=== PATIENT | male | born 1985 | race Asian ===

== ENCOUNTER 2024-02-17 16:03 | Emergency (ER) | payer OTHER ==
[2024-02-17 17:19] LABS: Specific Gravity 1.019 (1.005-1.030); Sqamous Epithelial None Seen /HPF (None Seen); Urine Bacteria <20 /HPF (<20); Urine Bilirubin NEGATIVE (Negative); Urine Blood Negative (Negative); Urine Clarity Clear (Clear); Urine Color Light-Yellow (Yellow); Urine Culture Reflex Order REFLEXED; Urine Glucose NEGATIVE (Negative); Urine Ketones NEGATIVE (Negative); Urine Microscopic Reflex YN ORDER UMIC; Urine Mucus Slight /HPF (None Seen); Urine Nitrite NEGATIVE (Negative); Urine Protein NEGATIVE (Negative); Urine Urobilinogen Normal (Normal); Urine pH 5.5 (5.0-7.0)
--- NOTE | 2024-02-17 17:24 | EDPHYS ---
Physician Documentation [facility] Name: Luis Leija Age: 38 yrs Sex: Male : 1985 Arrival Date: 02/17/2024 Time: 16:03 Bed 26 Private MD: ED Physician Gregg Pineda HPI: 02/16 18:26 This 38 yrs old Male presents to ER via Ambulatory with complaints of Urinary Problem, kb Pain With Urination. 18:26 Pt is a 38 year old male who presents for dysuria for one month. Denies fever, flank kb pain, abd pain, hematuria, testicular/penile pain or discharge. . Historical: - Allergies: 16:49 No Known Allergies; ld1 - PMHx: 16:49 None; ld1 - PSHx: 16:49 None; ld1 - Immunization history:: Adult Immunizations up to date. - Infectious Disease History:: Denies. - Social history:: Smoking status: Patient denies any tobacco usage or history of. ROS: 18:25 Constitutional: As per HPI kb Exam: 18:25 Constitutional: This is a well developed, well nourished patient who is awake, alert, kb and in no acute distress. Head/Face: Normocephalic, atraumatic. ENT: Moist Mucous membranes Cardiovascular: Regular rate Respiratory: Respirations even and unlabored. No increased work of breathing. Talking in full sentences Abdomen/GI: Soft, non-tender. No distention Back: No spinal tenderness. No costovertebral tenderness. Full range of motion. Skin: Warm, dry with normal turgor. Normal color. MS/ Extremity: Pulses equal, no cyanosis. Neurovascular intact. Full, normal range of motion. Neuro: Awake and alert, GCS 15, oriented to person, place, time, and situation. Moves all extremities. Normal gait. Vital Signs: 16:49 Pulse 64; Resp 18; Pulse Ox 99% on R/A; ld1 16:49 Temp 98.1(TE); Weight 83.46 kg; Height 5 ft. 8 in. ; Pain 0/10; ld1 16:49 BP 130 / 96; ld1 17:42 BP 124 / 82; Pulse 69; Resp 18; Pulse Ox 100% on R/A; ld1 16:49 Body Mass Index 27.98 (83.46 kg, 172.72 cm) ld1 16:49 Pain Scale: Adult ld1 MDM: 16:06 Patient medically screened. kb 18:25 Differential diagnosis: uti, kidney stone, std. Data reviewed: vital signs, nurses kb notes. Test considered but Not performed: CT: ct considered but pt has no CVA or abd tenderness. Counseling: I had a detailed discussion with the patient and/or guardian regarding the historical points, exam findings, and any diagnostic results supporting the discharge/admit diagnosis, lab results, the need for outpatient follow up, a urologist, to return to the emergency department if symptoms worsen or persist or if there are any questions or concerns that arise at home. 02/16 16:06 Order name: Urinalysis w/ reflexes; Complete Time: 17:22 kb 02/16 17:25 Order name: Urine Culture EDMS Administered Medications: No medications were administered Disposition Summary: 02/17/24 17:23 Discharge Ordered Notes: Location: Home kb Condition: Stable kb Diagnosis - UTI/ Urinary tract infection, site not specified kb Followup: kb - With: Emergency Department - When: As needed - Reason: Worsening of condition Followup: kb - With: Private Physician - When: 2 - 3 days - Reason: Recheck today's complaints, Continuance of care, Re-evaluation by your physician Discharge Instructions: - Discharge Summary Sheet kb - Urinary Tract Infection, Adult, [id number] kb Forms: - Medication Reconciliation Form kb - Antibiotic Education kb - Prescription Opioid Use kb - Patient Portal Instructions kb - Leadership Thank You Letter kb Prescriptions: - Augmentin 875-125 mg Oral Tablet - take 1 tablet ORAL route every 12 hours for 10 days; 20 tablet; Refills: 0, kb Product Selection Permitted Signatures: Dispatcher [employer] EDMS Flori Mcgowan, TARYN ESPARZA-Cassia Kennedy, RN RN ld1
--- NOTE | 2024-02-17 17:24 | ER ---
Nurse's Notes [facility] Name: Luis Leija Age: 38 yrs Sex: Male : 1985 Arrival Date: 02/17/2024 Time: 16:03 Bed 26 Private MD: Diagnosis: UTI/ Urinary tract infection, site not specified Presentation: 02/16 16:44 Chief complaint: Patient states: burning with urination for almost a month. iw 16:47 Coronavirus screen: At this time, the client does not indicate any symptoms associated iw with coronavirus-19. Ebola Screen: Patient negative for fever greater than or equal to 101.5 degrees Fahrenheit, and additional compatible Ebola Virus Disease symptoms Patient denies exposure to infectious person. Patient denies travel to an Ebola-affected area in the 21 days before illness onset. No symptoms or risks identified at this time. Initial Sepsis Screen: Does the patient meet any 2 criteria? No. Patient's initial sepsis screen is negative. Does the patient have a suspected source of infection? No. Patient's initial sepsis screen is negative. Risk Assessment: Do you want to hurt yourself or someone else? Patient reports no desire to harm self or others. Onset of symptoms was December 2023. 16:47 Method Of Arrival: Ambulatory iw 16:47 Acuity: ALENA 4 iw Triage Assessment: 16:49 General: Appears in no apparent distress. comfortable, Behavior is calm, cooperative, ld1 appropriate for age. Pain: Denies pain. EENT: No signs and/or symptoms were reported regarding the EENT system. Neuro: Level of Consciousness is awake, alert, obeys commands, Oriented to person, place, time, Appropriate for age. Cardiovascular: Capillary refill < 3 seconds Patient's skin is warm and dry. Respiratory: Airway is patent Respiratory effort is even, unlabored. GI: Abdomen is flat, non-distended. : Reports burning with urination. Derm: No signs and/or symptoms reported regarding the dermatologic system. Musculoskeletal: No signs and/or symptoms reported regarding the musculoskeletal system. Historical: - Allergies: 16:49 No Known Allergies; ld1 - PMHx: 16:49 None; ld1 - PSHx: 16:49 None; ld1 - Immunization history:: Adult Immunizations up to date. - Infectious Disease History:: Denies. - Social history:: Smoking status: Patient denies any tobacco usage or history of. Screenin:51 [facility] ED Fall Risk Assessment (Adult) History of falling in the last 3 months, ld1 including since admission No falls in past 3 months (0 pts) Confusion or Disorientation No (0 pts) Intoxicated or Sedated No (0 pts) Impaired Gait No (0 pts) Mobility Assist Device Used No (0 pt) Altered Elimination No (0 pt) Score/Fall Risk Level 0 - 2 = Low Risk Oriented to surroundings, Maintained a safe environment, Educated pt \T\ family on fall prevention, incl call for assistance when getting out of bed, Assessed \T\ reinforced patient's understanding of fall precautions, Provided non-skid footwear, Hourly rounding (assess needs \T\ fall precautionary measures) done, Used ambulatory aids as needed (educated on \T\ assisted with), Used gait belt as appropriate. Abuse screen: Denies threats or abuse. Denies injuries from another. Nutritional screening: No deficits noted. Tuberculosis screening: No symptoms or risk factors identified. Assessment: 16:51 Reassessment: See triage assessment. ld1 17:42 Reassessment: Patient appears in no apparent distress at this time. No changes from ld1 previously documented assessment. Patient and/or family updated on plan of care and expected duration. Pain level reassessed. Patient is alert, oriented x 3, equal unlabored respirations, skin warm/dry/pink. Vital Signs: 16:49 Pulse 64; Resp 18; Pulse Ox 99% on R/A; ld1 16:49 Temp 98.1(TE); Weight 83.46 kg; Height 5 ft. 8 in. ; Pain 0/10; ld1 16:49 BP 130 / 96; ld1 17:42 BP 124 / 82; Pulse 69; Resp 18; Pulse Ox 100% on R/A; ld1 16:49 Body Mass Index 27.98 (83.46 kg, 172.72 cm) ld1 16:49 Pain Scale: Adult ld1 ED Course: 16:05 Patient arrived in ED. ra3 16:05 Flor[facility] Mcgow[facility]C [facility] kb 16:05 Gregg Pineda MD is Attending Physician. kb 16:37 Palmira Anglin, MATTHEW is Primary Nurse. iw 16:47 Triage completed. iw 16:49 Arm band placed on right wrist. ld1 16:51 Patient has correct armband on for positive identification. Placed in gown. Bed in low ld1 position. Call light in reach. Side rails up X2. rehab specialist on. Pulse ox on. NIBP on. Door closed. Noise minimized. Warm blanket given. 16:51 No provider procedures requiring assistance completed. Patient did not have IV access ld1 during this emergency room visit. 16:59 Urinalysis w/ reflexes Sent. iw Administered Medications: No medications were administered Medication: 16:51 VIS not applicable for this client. ld1 Outcome: 17:23 Discharge ordered by . kb 17:43 Discharged to home ambulatory, ld1 17:43 Condition: stable 17:43 Discharge instructions given to patient, Instructed on discharge instructions, follow up and referral plans. medication usage, Demonstrated understanding of instructions, follow-up care, medications, Prescriptions given X 1, 17:43 Patient left the ED. ld1 Signatures: Flori Mcgowan, VOCATIONAL PSYCHOLOGIST-C VOCATIONAL PSYCHOLOGIST-Palmira Becker, RN RN Cassia Bull RN RN ld1 Bhumika Parsons ra3
[2024-02-17 18:22] VITALS: BP 124/82; TEMP 98.1; O2SAT 100
== END 2024-02-17 17:43 | disposition home or self-care (01) ==
LOC: ER 16:03
DX: N39.0 Urinary tract infection, site not specified (principal)
CPT/HCPCS: 81001; 87086; 87088; 99284

== ENCOUNTER 2024-08-03 07:08 | Observation (INO) | payer OTHER ==
--- OUTSIDE RECORDS SUMMARY | 2024-08-03 07:12 | XMS REPORT | Continuity of Care Document ---
Author Name Unknown Address [address] [facility] [address] [place] [address] [facility] Address [address] [facility] [address] [place] [address] Care Team Providers Care Edge Finisher Name Role Phone PCP, PATIENT DOES NOT HAVE A Primary Care Physic fritz Unavailable GINGER TO Attending Clinician Unavailable GINGER TO Attending Clinician Unavailable Darlene De Luna RN Attending Clinician [phone] Ling Farmer Attending Clinician [phone] ANDREA EDGAR Attending Clinician UnaDino Astorga MD Attending Clinician [phone] Dorita Jarvis MD Attending Clinician [phone] Andrea Edgar DO Attending Clinician [phone] DINO DAVIS Admitting Clinician Unavailable Dino Davis MD Admitting Clinician [phone] Payers Payer Name Policy Type Policy Number Effective Date Expirati on Date Source [facility] RBG COMM [id number] 2024 00:00:00 COVID19 HRSA UNINSURED [id number] 2020 00:00:00 2020 00:00:00 Problems Condition Name Condition Details Condition Category Status Onset Date Resolution Date Last Treatment Date Treating Clinician Comments Source COVID-19 COVID-19 Disease Active 10-24 00:00: 00 [facility] Allergies, Adverse Reactions, Alerts Allergy Name Allergy Type Status Severity Reaction(s) Onset Date Inactive Date Treating Clinician Comments Source NO KNOWN ALLERGIE S Drug Class Active [facility] Social History Social Habit Start Date Stop Date Quantity Comments Source Exposure to SARS-CoV-2 (event) Yes [facility] Tobacco use and exposure 2020-10-25 00:00:00 2020-10-25 00:00:00 Never used [facility] History SDOH Financial 2020-10-25 00:00:00 2020-10-25 00:00:00 5 [facility] Sex Assigned At 1985 00:00:00 1985 00:00:00 [facility] Smoking Status Start Date Stop Date Source Never smoker [facility] Medications Ordered Medication Name Filled Medication Name Start Date Stop Date Current Medication? Ordering Clinician Indication Dosage Frequency Signature (SIG) Comments Components Source codeine-gua ifenesin 10-100 mg/5 mL solution 11-01 00:00: 00 Yes [id number] 5mL Take 5 mL by mouth every 6 (six) hours. Indication s: acute pain [facility] enoxaparin 80 mg/0.8 mL injection 11-01 00:00: 00 11-30 04:59 :00 No [id number] 80mg inject 0.8 mL under the skin every 24 (twenty-fo ur) hours for 28 days. [facility] albuterol 90 mcg/actuati on inhaler - 00:00: 00 Yes [id number] 2{puff} Inhale 2 Puffs every 6 (six) hours as needed for Wheezing or Shortness of Breath. [facility] codeine-gua ifenesin 10-100 mg/5 mL solution 3- 00:00: 00 11-08 04:59 :00 No [id number] 5mL Take 5 mL by mouth every 6 (six) hours for 7 days. Indication s: acute pain [facility] codeine-gua ifenesin (ROBITUSSIN AC) 10-100 mg/5 mL solution 5 mL - 22:00: 00 Yes 5mL 5 mL, Oral, Q6H ABX, First dose (after last modificati on) on Thu10/30/20 at 1600, Until Discontinu ed, Routine [facility] Investigati onal drug - baricitinib 2 mg or placebo tablet 10-27 18:30: 00 11-09 17:29 :00 No 4mg 4 mg, Oral, Q24H, 13 doses, First dose (after last modificati on) on 10/27/20 at 1230, Last dose on [place]ak 11/08/20 at 1230, ALAN
Pr incipal investigat or: ANKIT TEAGUE [facility] Investigati onal drug - dexamethaso ne IV or placebo 10-27 18:30: 00 11-05 17:29 :00 No 6mg 6 mg, IV Push, Q24H, 9 doses, First dose (after last modificati on) on 10/27/20 at 1230, Last dose on Thu11/04/20 at 1230, ALAN
Pr incipal investigat or: ANKIT TEAGUE [facility] Investigati onal drug - remdesivir 100 mg in NaCl 0.9% (NS) 250 mL infusion 10-27 17:00: 00 11-04 15:59 :00 No 100mg 100 mg, IV Infusion, Q24H, 8 doses, First dose (after last modificati on) on 10/27/20 at 1100, Last dose on 11/03/20 at 1100, 250 mL
Prin cipal investigat or: ANKIT TEAGUE [facility] pantoprazol e (PROTONIX) EC tablet 40 mg 10-27 15:00: 00 Yes 40mg 40 mg, Oral, DAILY, First dose on 10/27/20 at 0900, Until Discontinu ed, Routine [facility] codeine-gua ifenesin (ROBITUSSIN AC) 10-100 mg/5 mL solution 5 mL 10-27 04:00: 00 10-30 21:45 :10 No 5mL 5 mL, Oral, Q6H ABX, First dose on Thu10/26/20 at 2200, Until Discontinu ed, Routine [facility] benzonatate (TESSALON PERLES) capsule 200 mg 10-27 02:00: 00 Yes 200mg 200 mg, Oral, TID, First dose on Thu10/26/20 at 2000, Until Discontinu ed, Routine [facility] NaCl 0.9% (NS) injection 10 mL 10-26 21:42: 51 Yes 10mL 10 mL, Slow IV Push, PRN, Starting Thu10/26/20 at 1542, Until Discontinu ed, Routine, line maintenanc e [facility] lidocaine 1% (PF) (XYLOCAINE) injection 5 mL 10-26 21:42: 51 Yes 5mL 5 mL, Subcutaneo us, PRN, Starting Thu10/26/20 at 1542, Until Discontinu ed, Routine, Local anesthesia [facility] Investigati onal drug - dexamethaso ne IV or placebo 10-26 21:00: 00 10-26 22:29 :09 No 6mg 6 mg, IV Push, Q24H, 10 doses, First dose on Thu10/26/20 at 1500, Last dose on Thu11/04/20 at 1500, ALAN
Pr incipal investigat or: ANKIT TEAGUE [facility] Investigati onal drug - baricitinib 2 mg or placebo tablet 10-26 21:00: 00 10-26 22:29 :09 No 4mg 4 mg, Oral, Q24H, 14 doses, First dose on Thu10/26/20 at 1500, Last dose on Thu11/08/20 at 1500, ALAN
Pr incipal investigat or: ANKIT TEAGUE [facility] enoxaparin (LOVENOX) injection 80 mg 10-26 09:30: 00 Yes 1mg/kg 80 mg (rounded from 76 mg = 1 mg/kg ?76 kg), Subcutaneo us, Q24H, First dose (after last modificati on) on Thu10/26/20 at 0330, Until Discontinu ed, Routine [facility] acetaminoph en (TYLENOL) tablet 650 mg 10-25 10:11: 55 Yes 650mg 650 mg, Oral, Q8HPRN, Starting Thu10/25/20 at 0411, Until Discontinu ed, Routine, Pain (scale 1-3), Temp > 38.5 C [facility] enoxaparin (LOVENOX) injection 40 mg 10-25 09:30: 00 10-25 16:10 :48 No 40mg 40 mg, Subcutaneo us, Q24H, First dose on Thu10/25/20 at 0330, Until Discontinu ed, Routine [facility] ipratropium (ATROVENT HFA) inhaler 1 Puff 10-25 06:45: 00 10-25 13:31 :27 No 1{puff} 1 Puff, Inhalation , Q6H, First dose on Thu10/25/20 at 0045, Until Discontinu ed, Routine
Is this order for a patient with suspected or confirmed COVID-19 infection? Yes [facility] albuterol (VENTOLIN) inhaler 1 Puff 10-25 06:45: 00 10-25 13:40 :05 No 1{puff} 1 Puff, Inhalation , Q6H, First dose on Thu10/25/20 at 0045, Until Discontinu ed, Routine
Is this order for a patient with suspected or confirmed COVID-19 infection? Yes [facility] glucagon (GLUCAGEN DIAGNOSTIC KIT) injection 1 mg 10-25 05:20: 55 Yes 1mg 1 mg, Intramuscu lar, PRN, Starting Thu10/24/20 at 2320, Until Discontinu ed, ALAN, Blood Glucose < or = 70 mg/dL and patient is unable to swallow or has mental changes. [facility] dextrose 50 % in water (D50W) injection 25 mL 10-25 05:20: 55 Yes 25mL 25 mL, Slow IV Push, PRN, Starting Thu10/24/20 at 2320, Until Discontinu ed, ALAN, Blood Glucose < or = 70 mg/dL and patient is unable to swallow or has mental status changes. [facility] Vital Signs Vital Name Observation Time Observation Value Comments S ource Respiratory rate 2020-10-31 21:47:00 18 /min [facility] Oxygen saturation in Arterial blood by Pulse oximetry 2020-10-31 21:47:00 95 /min [facility] Systolic blood pressure 2020-10-31 21:47:00 112 mm[Hg] [facility] Diastolic blood pressure 2020-10-31 21:47:00 75 mm[Hg] [facility] Heart rate 2020-10-31 21:47:00 111 /min [facility] Body temperature 2020-10-31 21:46:00 36.78 Sandra [facility] Body weight 2020-10-30 02:00:00 78.472 kg [facility] BMI 2020-10-30 02:00:00 27.92 kg/m2 [facility] Body height 2020-10-25 05:06:00 167.6 cm [facility] Procedures Procedure Date / Time Performed Performing Clinician Source HEPATIC FUNCTION PANEL ([id number]) (ALB,T.PRO,BILI T,BU/BC,ALT,AST,ALK PHOS) 2020-10-31 09:35:00 Wally [facility] BASIC METABOLIC PANEL (NA, K, CL, CO2, GLUCOSE, BUN, CREATININE, CA) 2020-10-31 09:35:00 Wally [facility] C-REACTIVE PROTEIN 2020-10-30 09:32:00 [facility] ([id number][facility] (ALB,T.PRO,BILI T,BU/BC,ALT,AST,ALK PHOS) 2020-10-30 09:32:00 Wally [facility] BASIC METABOLIC PANEL (NA, K, CL, CO2, GLUCOSE, BUN, CREATININE, CA) 2020-10-30 09:32:00 Wally [facility] CBC WITH DIFF 2020-10-30 09:32:00 Lo, Matt [facility] PROTHROMBIN TIME / INR 2020-10-30 09:32:00 Wally [facility] D-DIMER 2020-10-30 09:32:00 Wally [facility] HEPATIC FUNCTION PANEL ([id number]) (ALB,T.PRO,BILI T,BU/BC,ALT,AST,ALK PHOS) 2020-10-29 09:43:00 Wally [facility] BASIC METABOLIC PANEL (NA, K, CL, CO2, GLUCOSE, BUN, CREATININE, CA) 2020-10-29 09:43:00 [facility] C-REACTIVE PROTEIN 2020-10-28 10:25:00 Matt Lo [facility] HEPATIC FUNCTION PANEL ([id number]) (ALB,T.PRO,BILI T,BU/BC,ALT,AST,ALK PHOS) 2020-10-28 10:25:00 Lo [facility] BASIC METABOLIC PANEL (NA, K, CL, CO2, GLUCOSE, BUN, CREATININE, CA) 2020-10-28 10:25:00 Lo [facility] CBC WITH DIFF 2020-10-28 10:25:00 Wally [facility] PROTHROMBIN TIME / INR 2020-10-28 10:25:00 Wally [facility] D-DIMER 2020-10-28 10:25:00 Lo [facility] C-REACTIVE PROTEIN 2020-10-26 22:19:00 Desean Tinoco [facility] HEPATIC FUNCTION PANEL ([id number]) (ALB,T.PRO,BILI T,BU/BC,ALT,AST,ALK PHOS) 2020-10-26 22:19:00 Desean Tinoco [facility] CBC WITH DIFF 2020-10-26 22:19:00 Desean Tinoco [facility] PROTHROMBIN TIME / INR 2020-10-26 22:19:00 Mildred Tinoco cas [facility] D-DIMER 2020-10-26 22:19:00 Desean Tinoco [facility] VITAMIN D, 25-OH 2020-10-26 22:19:00 Desean Tinoco [facility] BASIC METABOLIC PANEL (NA, K, CL, CO2, GLUCOSE, BUN, CREATININE, CA) 2020-10-26 10:39:00 Sisi Velasquez [facility] SPUTUM CULTURE 2020-10-25 21:25:00 Margaret Walsh [facility] CT CHEST PULMONARY ANGIOGRAM 2020-10-25 14:37:44 Audie Corey [facility] URINALYSIS 2020-10-25 14:21:00 Audie Corey [facility] PNEUMOCOCCAL ANTIGEN 2020-10-25 14:21:[facility] 2020-10-25 14:21:00 Audie Corey [facility] AC PANEL 20 + LACTIC ACID 2020-10-25 07:53:00 [facility] HB ECG ROUTINE & RHYTHM STRIP 2020-10-25 07:41:11 [facility] SPUTUM CULTURE 2020-10-25 06:55:00 Audie Corey [facility] MRSA / MSSA SCREEN BY PCREDDA 2020-10-25 06:54:00 Audie Corey [facility] COVID-19 (ID NOW RAPID TESTING) 2020-10-25 06:54:00 [facility] LAB ONLY COVID INTERPRETATION 2020-10-25 06:54:00 [facility] LACTATE DEHYDROGENASE 2020-10-25 06:52:00 Clarence Corey i [facility] MAGNESIUM 2020-10-25 06:52:00 Audie Corey [facility] CERULOPLASMIN 2020-10-25 06:52:00 Audie Corey [facility] TROPONIN I 2020-10-25 06:52:00 Kristin Tamayo [facility] HEPATIC FUNCTION PANEL (29887) (ALB,T.PRO,BILI T,BU/BC,ALT,AST,ALK PHOS) 2020-10-25 06:52:00 Audie Corey [facility] BASIC METABOLIC PANEL (NA, K, CL, CO2, GLUCOSE, BUN, CREATININE, CA) 2020-10-25 06:52:00 Audie Corey [facility] CBC WITH DIFF 2020-10-25 06:52:00 Audie Corey [facility] D-DIMER 2020-10-25 06:52:00 Audie Corey [facility] PROCALCITONIN 2020-10-25 06:52:[facility] 2020-10-25 06:46:00 Audie Corey [facility] BLOOD CULTURE SCREEN 2020-10-25 06:44:00 [facility] 2020-10-25 05:52:45 Audie Corey [facility] HOSPITAL ADMISSION 2020-10-24 06:01:00 Doctor Un assigned, [place] [facility] Encounters Start Date/Time End Date/Time Encounter Type Admission Type Attending Clinicians Care Facility Care Department Encounter ID Source 2024-06-13 14:37:00 2024-06-13 15:45:00 Emergency Elective GINGER TO [facility] General Medicine [id number] [facility] 2020-11-13 00:00:00 2020-11-13 00:00:00 Patient Outreach Darlene De Luna Miguel Cade 1..840.114 [id number] [facility] 2020-11-01 00:00:00 2020-11-01 00:00:00 Transition of Care Ling Farmer 1..840.114 [id number] [facility] 2020-11-01 00:00:00 2020-11-01 00:00:00 Transition of Care Ling Farmer [id number] [facility] 2020-10-24 23:16:00 2020-10-31 18:13:00 Inpatient U YARON MOROCHO, [facility]REA [facility] [id number] [facility] 2020-10-24 23:16:00 2020-10-31 18:13:00 Hospital Encounter Dino Davis, Dorita Morocho, Andrea [facility] 1..840.114 [id number] [facility] Results Test Description Test Time Test Comments Results Result Co mments Source [facility] (NA, K, CL, CO2, GLUCOSE, BUN, CREATININE, CA)2020-10-31 10:20:35* Test Item Value Reference Range Interpretation Comme nts NA (test code = 5773590715) 134 mmol/L 135-145 L K (test code = 3236361751) 4.5 mmol/L 3.5-5.0 Slight hemolysis CL (test code = 9543702168) 100 mmol/L 98-108 CO2 TOTAL (test code = 5648939705) 29 mmol/L 23-31 AGAP (test code = 7133571444) 2-16 BUN (test code = 3105916491) 24 mg/dL 7-23 H Slight hemolysis GLUCOSE (test code = 4725042924) 133 mg/dL 70-110 H CREATININE (test code = 9578777396) 0.81 mg/dL 0.60-1.25 CALCIUM (test code = 4318025861) 8.4 mg/dL 8.6-10.6 L eGFR Calculation (Non-) (test code = 7595561246) mL/min/1.73m2 eGFR Calculation () (test code = 6646681196) mL/min/1.73m2 MARGARITA (test code = MARGARITA) Association of Glomerular Filtration Rate (GFR) and Staging of Kidney Disease* + -----+ --------+ +| GFR (mL/min/1.73 m2) ?| With Kidney Damage ?| ?Without Kidney Damage+ +------- +---- --+| ?>90 ?| ?Stage one ?| ? Normal ?+ ------+ ---------+--------- +| ?60-89 ?| ?Stage two ?| ? Decreased GFR ? + -----+ --------+ +| ?30-59 ?| ?Stage three ?| ? Stage three ? + -----+ --------+ +| ?15-29 ?| ?Stage four ? | ? Stage four ?+ ------+ ---------+--------- +| ?<15 (or dialysis) ? ?| ?Stage five ? | ? Stage five ?+ ------+ ---------+--------- + *Each stage assumes the associated GFR level has been in effect for at least three months. ?Stages 1 to 5, with or without kidney disease, indicate chronic kidney disease. Notes: Determination of stages one and two (with eGFR >59mL/min/1.73 m2) requires estimation of kidney damage for at least three months as defined by structural or functional abnormalities of the kidney, manifested by either:Pathological abnormalities or Markers of kidney damage (including abnormalities in the composition of the blood or urine or abnormalities in imaging tests). Lab Interpretation (test code = 70004-8) Abnormal [facility] [id number] 15:47:08* Test Item Value Reference Range Interpretation Comme nts CRP (test code = 4689422068) 0.7 mg/dL <0.8 Lab Interpretation (test cod e = 89533-9) Normal [facility] [id number] 14:01:19* Test Item Value Reference Range Interpretation Comme nts Blood Culture-Aerobic (test code = 40767-3) No organisms isolated No growth Previous preliminary verified result was Culture In Progress on 10/25/2020 at 1101 CSTPrevious preliminary verified result was No growth at 24 hours on 10/26/2020 at 0801 CSTPrevious preliminary verified result was No growth at 48 hours on 10/27/2020 at 0801 CSTPrevious preliminary verified result was No growth at 72 hours on 10/28/2020 at 0802 BIOMEDICAL INSTRUMENT TECHNICIAN Blood Culture-Anaerobic (test code = 99777-9) No organisms isolated No growth Previous preliminary verified result was Culture In Progress on 10/25/2020 at 1101 CSTPrevious preliminary verified result was No growth at 24 hours on 10/26/2020 at 0801 CSTPrevious preliminary verified result was No growth at 48 hours on 10/27/2020 at 0801 CSTPrevious preliminary verified result was No growth at 72 hours on 10/28/2020 at 0802 BIOMEDICAL INSTRUMENT TECHNICIAN Lab Interpretation (test code = 80298-1) Normal [facility] [id number] 14:01:19* Test Item Value Reference Range Interpretation Comme nts Blood Culture-Aerobic (test code = 63786-4) No organisms isolated No growth Previous preliminary verified result was Culture In Progress on 10/25/2020 at 1101 CSTPrevious preliminary verified result was No growth at 24 hours on 10/26/2020 at 0801 CSTPrevious preliminary verified result was No growth at 48 hours on 10/27/2020 at 0801 CSTPrevious preliminary verified result was No growth at 72 hours on 10/28/2020 at 0802 BIOMEDICAL INSTRUMENT TECHNICIAN Blood Culture-Anaerobic (test code = 87145-1) No organisms isolated No growth Previous preliminary verified result was Culture In Progress on 10/25/2020 at 1101 CSTPrevious preliminary verified result was No growth at 24 hours on 10/26/2020 at 0801 CSTPrevious preliminary verified result was No growth at 48 hours on 10/27/2020 at 0801 CSTPrevious preliminary verified result was No growth at 72 hours on 10/28/2020 at 0802 BIOMEDICAL INSTRUMENT TECHNICIAN Lab Interpretation (test code = 68654-6) Normal [facility] WITH [id number] 11:18:16* Test Item Value Reference Range Interpretation Comme nts WBC (test code = 6690-2) See_Comment H [Automated messa ge] The system which generated this result transmitted reference range: 4.20 - 10.70 10*3/?L. The reference range was not used to interpret this result as normal/abnormal. RBC (test code = 789-8) See_Comment [Automated messa ge] The system which generated this result transmitted reference range: 4.26 - 5.52 10*6/?L. The reference range was not used to interpret this result as normal/abnormal. HGB (test code = 718-7) 14.4 g/dL 12.2-16.4 HCT (test code = 4544-3) 42.7 % 38.4-49.3 MCV (test code = 787-2) 83.6 fL 81.7-95.6 MCH (test code = 785-6) 28.2 pg 26.1-32.7 MCHC (test code = 786-4) 33.7 g/dL 31.2-35.0 RDW-SD (test code = 19038-9) 37.6 fL 38.5-51.6 L RDW-CV (test code = 788-0) 12.4 % 12.1-15.4 PLT (test code = 777-3) See_Comment H [Automated ReadyForZeroa ge] The system which generated this result transmitted reference range: 150 - 328 10*3/?L. The reference range was not used to interpret this result as normal/abnormal. MPV (test code = 72889-3) 9.7 fL 9.8-13.0 L NRBC/100 WBC (test code = 4171015439) See_Comment [Automated eduClipper ssage] The system which generated this result transmitted reference range: 0.0 - 10.0 /100 WBCs. The reference range was not used to interpret this result as normal/abnormal. NRBC x10^3 (test code = 1874766146) <0.01 See_Comment [Automated ReadyForZeroa ge] The system which generated this result transmitted reference range: 10*3/?L. The reference range was not used to interpret this result as normal/abnormal. GRAN MAT (NEUT) % (test code = 770-8) 72.8 % IMM GRAN % (test code = 8428745212) 5.60 % LYMPH % (test code = 736-9) 14.2 % MONO % (test code = 5905-5) 6.9 % EOS % (test code = 713-8) 0.0 % BASO % (test code = 706-2) 0.5 % GRAN MAT x10^3(ANC) (test code = 6012815135) 9.24 10*3/uL 1.99-6.95 H IMM GRAN x10^3 (test code = 3140330972) 0.71 10*3/uL 0.00-0.06 H LYMPH x10^3 (test code = 731-0) 1.80 10*3/uL 1.09-3.23 MONO x10^3 (test code = 742-7) 0.87 10*3/uL 0.36-1.02 EOS x10^3 (test code = 711-2) <0.03 0.06-0.53 L BASO x10^3 (test code = 704-7) 0.06 10*3/uL 0.01-0.09 TOXIC CHANGES (test code = 803-7) Present A Lab Interpretation (test code = 61937-4) Abnormal [facility] METABOLIC PANEL (NA, K, CL, CO2, GLUCOSE, BUN, CREATININE, CA)2020-10-30 10:29:26* Test Item Value Reference Range Interpretation Comme nts NA (test code = 7788997007) 134 mmol/L 135-145 L K (test code = 6390196174) 4.2 mmol/L 3.5-5.0 Slight hemolysis CL (test code = 0379138337) 99 mmol/L 98-108 CO2 TOTAL (test code = 5213972458) 29 mmol/L 23-31 AGAP (test code = 1274862375) 2-16 BUN (test code = 7748056524) 20 mg/dL 7-23 Slight hemolysis GLUCOSE (test code = 7040626728) 185 mg/dL 70-110 H CREATININE (test code = 9328231877) 0.73 mg/dL 0.60-1.25 CALCIUM (test code = 4693447501) 8.4 mg/dL 8.6-10.6 L eGFR Calculation (Non-) (test code = 5546963044) mL/min/1.73m2 eGFR Calculation () (test code = 6511869061) mL/min/1.73m2 MARGARITA (test code = MARGARITA) Association of Glomerular Filtration Rate (GFR) and Staging of Kidney Disease* + -----+ --------+ +| GFR (mL/min/1.73 m2) ?| With Kidney Damage ?| ?Without Kidney Damage+ +------- +---- --+| ?>90 ?| ?Stage one ?| ? Normal ?+ ------+ ---------+--------- +| ?60-89 ?| ?Stage two ?| ? Decreased GFR ? + -----+ --------+ +| ?30-59 ?| ?Stage three ?| ? Stage three ? + -----+ --------+ +| ?15-29 ?| ?Stage four ? | ? Stage four ?+ ------+ ---------+--------- +| ?<15 (or dialysis) ? ?| ?Stage five ? | ? Stage five ?+ ------+ ---------+--------- + *Each stage assumes the associated GFR level has been in effect for at least three months. ?Stages 1 to 5, with or without kidney disease, indicate chronic kidney disease. Notes: Determination of stages one and two (with eGFR >59mL/min/1.73 m2) requires estimation of kidney damage for at least three months as defined by structural or functional abnormalities of the kidney, manifested by either:Pathological abnormalities or Markers of kidney damage (including abnormalities in the composition of the blood or urine or abnormalities in imaging tests). Lab Interpretation (test code = 16408-5) Abnormal [facility] PAN[facility] (56978) (ALB,T.PRO,BILI T,BU/BC,ALT,AST,ALK PHOS)2020-10-30 10:29:26* Test Item Value Reference Range Interpretation Comme nts TOTAL BILI (test code = 8417402643) 0.4 mg/dL 0.1-1.1 BILI UNCON (test code = 8945181893) 0.4 mg/dL 0.1-1.1 BILI CONJ (test code = 8326883756) 0.0 mg/dL 0.0-0.3 T PROTEIN (test code = 3933084973) 6.3 g/dL 6.3-8.2 ALBUMIN (test code = 7214246585) 3.2 g/dL 3.5-5.0 L ALK PHOS (test code = 7612541172) 51 U/L 34-122 ALTv (test code = 1742-6) 152 U/L 5-50 H AST(SGOT) (test code = 4920732610) 61 U/L 13-40 H Lab Interpretation (test cod e = 73668-0) Abnormal [facility] / [id number] 10:09:46* Test Item Value Reference Range Interpretation Comme nts PROTIME PATIENT (test code = 5964-2) See_Comment H [Automated messa ge] The system which generated this result transmitted reference range: 10.1 - 12.6 Seconds. The reference range was not used to interpret this result as normal/abnormal. INR (test code = 6301-6) Normal INR <1.1; Warfarin Therapeutic range 2.0 to 3.0 or 2.5 to 3.5, depending upon the indications. Lab Interpretation (test code = 28788-0) Abnormal [facility] [id number] 10:09:46* Test Item Value Reference Range Interpretation Comments D-DIMER (test code = 8895990097) See_Comment H [Automated message] The system which generated this result transmitted reference range: <0.50 ?g/mL (FEU). The reference range was not used to interpret this result as normal/abnormal. MARGARITA (test code = MARGARITA) This test may be used in conjunction with a clinical pretest probability (PTP) assessment model to exclude venous thromboembolism (VTE) in patients suspected of deep venous thrombosis (DVT) and pulmonary embolism (PE) A D-Dimer value less than 0.50 ?g/ml (FEU) has a negative predicative value of 96 to 100% (95% CI)and 97 to 100% (95% CI) as an aid in the diagnosis of deep vein thrombosis (DVT) and pulmonary embolism when there is low or moderate pretest probability of PE or DVT. D-Dimer values are expressed in initial fibrinogen equivalent units (FEU)" The assay results should be used with other information, including the clinical context, in forming a diagnosis. Lab Interpretation (test code = 68075-5) [facility] (NA, K, CL, CO2, GLUCOSE, BUN, CREATININE, CA)2020-10-29 10:33:25* Test Item Value Reference Range Interpretation Comme nts NA (test code = 1441296609) 135 mmol/L 135-145 K (test code = 2225614219) 4.3 mmol/L 3.5-5.0 CL (test code = 8566702275) 101 mmol/L 98-108 CO2 TOTAL (test code = 8704245831) 27 mmol/L 23-31 AGAP (test code = 6721569511) 2-16 BUN (test code = 4169043207) 23 mg/dL 7-23 GLUCOSE (test code = 2109910306) 171 mg/dL 70-110 H CREATININE (test code = 9106372332) 0.74 mg/dL 0.60-1.25 CALCIUM (test code = 9934913278) 8.6 mg/dL 8.6-10.6 eGFR Calculation (Non-) (test code = 9316152015) mL/min/1.73m2 eGFR Calculation () (test code = 0861085900) mL/min/1.73m2 MARGARITA (test code = MARGARITA) Association of Glomerular Filtration Rate (GFR) and Staging of Kidney Disease* + --+ --+ ------+| GFR (mL/min/1.73 m2) ?| With Kidney Damage ?| ?Without Kidney Damage+ --------+ --------+ +| ?>90 ?| ?Stage one ?| ? Normal ?+ ---+ ---+ -------+| ?60-89 ?| ?Stage two ?| ? Decreased GFR ? + --+ --+ ------+| ?30-59 ?| ?Stage three ?| ? Stage three ? + --+ --+ ------+| ?15-29 ?| ?Stage four ? | ? Stage four ?+ ---+ ---+ -------+| ?<15 (or dialysis) ? ?| ?Stage five ? | ? Stage five ?+ ---+ ---+ -------+ *Each stage assumes the associated GFR level has been in effect for at least three months. ?Stages 1 to 5, with or without kidney disease, indicate chronic kidney disease. Notes: Determination of stages one and two (with eGFR >59mL/min/1.73 m2) requires estimation of kidney damage for at least three months as defined by structural or functional abnormalities of the kidney, manifested by either:Pathological abnormalities or Markers of kidney damage (including abnormalities in the composition of the blood or urine or abnormalities in imaging tests). Lab Interpretation (test code = 51714-7) [facility]normal [facility] FUNCTION PAN[facility] (58012) (ALB,T.PRO,BILI T,BU/BC,ALT,AST,ALK PHOS)2020-10-29 10:33:25* Test Item Value Reference Range Interpretation Comme nts TOTAL BILI (test code = 7710260418) 0.5 mg/dL 0.1-1.1 BILI UNCON (test code = 6832504003) 0.4 mg/dL 0.1-1.1 BILI CONJ (test code = 1186710553) 0.0 mg/dL 0.0-0.3 T PROTEIN (test code = 4703464344) 6.4 g/dL 6.3-8.2 ALBUMIN (test code = 0879226237) 3.2 g/dL 3.5-5.0 L ALK PHOS (test code = 2661881359) 58 U/L 34-122 ALTv (test code = 1742-6) 121 U/L 5-50 H AST(SGOT) (test code = 8165181683) 55 U/L 13-40 H Lab Interpretation (test cod e = 65128-0) [facility]normal [facility] HospitalC-REACTIVE [id number] 16:30:29* Test Item Value Reference Range Interpretation Comme nts CRP (test code = 7909835714) 1.9 mg/dL <0.8 H Lab Interpretation (test cod e = 94161-9) [facility]normal [facility] FUNCTION PANEL (16357) (ALB,T.PRO,BILI T,BU/BC,ALT,AST,ALK PHOS)2020-10-28 11:22:29* Test Item Value Reference Range Interpretation Comme nts TOTAL BILI (test code = 4427492837) 0.5 mg/dL 0.1-1.1 BILI UNCON (test code = 5906691415) 0.4 mg/dL 0.1-1.1 BILI CONJ (test code = 1725580063) 0.0 mg/dL 0.0-0.3 T PROTEIN (test code = 7758612432) 6.3 g/dL 6.3-8.2 ALBUMIN (test code = 2877814742) 3.3 g/dL 3.5-5.0 L ALK PHOS (test code = 3782540687) 63 U/L 34-122 ALTv (test code = 1742-6) 108 U/L 5-50 H AST(SGOT) (test code = 4365518029) 53 U/L 13-40 H Lab Interpretation (test cod e = 46753-8) Abnormal [facility] METABOLIC PANEL (NA, K, CL, CO2, GLUCOSE, BUN, CREATININE, CA)2020-10-28 11:22:28* Test Item Value Reference Range Interpretation Comme nts NA (test code = 7622190128) 137 mmol/L 135-145 K (test code = 4924481252) 4.4 mmol/L 3.5-5.0 CL (test code = 8266013766) 104 mmol/L 98-108 CO2 TOTAL (test code = 6178533642) 27 mmol/L 23-31 AGAP (test code = 8398260787) 2-16 BUN (test code = 6756000066) 21 mg/dL 7-23 GLUCOSE (test code = 8745836543) 143 mg/dL 70-110 H CREATININE (test code = 0347582353) 0.85 mg/dL 0.60-1.25 CALCIUM (test code = 8087245355) 8.7 mg/dL 8.6-10.6 eGFR Calculation (Non-) (test code = 9413616138) mL/min/1.73m2 eGFR Calculation () (test code = 7686085569) mL/min/1.73m2 MARGARITA (test code = MARGARITA) Association of Glomerular Filtration Rate (GFR) and Staging of Kidney Disease* + --+ --+ ------+| GFR (mL/min/1.73 m2) ?| With Kidney Damage ?| ?Without Kidney Damage+ --------+ --------+ +| ?>90 ?| ?Stage one ?| ? Normal ?+ ---+ ---+ -------+| ?60-89 ?| ?Stage two ?| ? Decreased GFR ? + --+ --+ ------+| ?30-59 ?| ?Stage three ?| ? Stage three ? + --+ --+ ------+| ?15-29 ?| ?Stage four ? | ? Stage four ?+ ---+ ---+ -------+| ?<15 (or dialysis) ? ?| ?Stage five ? | ? Stage five ?+ ---+ ---+ -------+ *Each stage assumes the associated GFR level has been in effect for at least three months. ?Stages 1 to 5, with or without kidney disease, indicate chronic kidney disease. Notes: Determination of stages one and two (with eGFR >59mL/min/1.73 m2) requires estimation of kidney damage for at least three months as defined by structural or functional abnormalities of the kidney, manifested by either:Pathological abnormalities or Markers of kidney damage (including abnormalities in the composition of the blood or urine or abnormalities in imaging tests). Lab Interpretation (test code = 97614-7) Abnormal [facility] HospitalPROTHROMBIN TIME / [id number] 11:01:25* Test Item Value Reference Range Interpretation Comme nts MARLENI PATIENT (test code = 5964-2) See_Comment H [Automated messa DGIT] The system which generated this result transmitted reference range: 10.1 - 12.6 Seconds. The reference range was not used to interpret this result as normal/abnormal. INR (test code = 6301-6) Normal INR <1.1; Warfarin Therapeutic range 2.0 to 3.0 or 2.5 to 3.5, depending upon the indications. Lab Interpretation (test code = 63809-0) [facility]normal [facility] HospitalD-[id number] 11:01:25* Test Item Value Reference Range Interpretation Comments D-DIMER (test code = 1241945117) See_Comment H [Automated message] The system which generated this result transmitted reference range: <0.50 ?g/mL (FEU). The reference range was not used to interpret this result as normal/abnormal. MARGARITA (test code = MARGARITA) This test may be used in conjunction with a clinical pretest probability (PTP) assessment model to exclude venous thromboembolism (VTE) in patients suspected of deep venous thrombosis (DVT) and pulmonary embolism (PE) A D-Dimer value less than 0.50 ?g/ml (FEU) has a negative predicative value of 96 to 100% (95% CI)and 97 to 100% (95% CI) as an aid in the diagnosis of deep vein thrombosis (DVT) and pulmonary embolism when there is low or moderate pretest probability of PE or DVT. D-Dimer values are expressed in initial fibrinogen equivalent units (FEU)" The assay results should be used with other information, including the clinical context, in forming a diagnosis. Lab Interpretation (test code = 26847-1) Abnormal [facility] WITH [id number] 10:49:24* Test Item Value Reference Range Interpretation Comme nts WBC (test code = 6690-2) See_Comment H [Automated [employer] ge] The system which generated this result transmitted reference range: 4.20 - 10.70 10*3/?L. The reference range was not used to interpret this result as normal/abnormal. RBC (test code = 789-8) See_Comment [Automated [employer] ge] The system which generated this result transmitted reference range: 4.26 - 5.52 10*6/?L. The reference range was not used to interpret this result as normal/abnormal. HGB (test code = 718-7) 14.3 g/dL 12.2-16.4 HCT (test code = 4544-3) 42.2 % 38.4-49.3 MCV (test code = 787-2) 84.9 fL 81.7-95.6 MCH (test code = 785-6) 28.8 pg 26.1-32.7 MCHC (test code = 786-4) 33.9 g/dL 31.2-35.0 RDW-SD (test code = 94435-5) 38.8 fL 38.5-51.6 RDW-CV (test code = 788-0) 12.6 % 12.1-15.4 PLT (test code = 777-3) See_Comment H [Automated [employer] ge] The system which generated this result transmitted reference range: 150 - 328 10*3/?L. The reference range was not used to interpret this result as normal/abnormal. MPV (test code = 23740-3) 9.7 fL 9.8-13.0 L NRBC/100 WBC (test code = 3417283068) See_Comment [Automated eduClipper ssage] The system which generated this result transmitted reference range: 0.0 - 10.0 /100 WBCs. The reference range was not used to interpret this result as normal/abnormal. NRBC x10^3 (test code = 3769135946) <0.01 See_Comment [Automated messa ge] The system which generated this result transmitted reference range: 10*3/?L. The reference range was not used to interpret this result as normal/abnormal. GRAN MAT (NEUT) % (test code = 770-8) 80.4 % IMM GRAN % (test code = 4967281375) 1.30 % LYMPH % (test code = 736-9) 11.3 % MONO % (test code = 5905-5) 6.8 % EOS % (test code = 713-8) 0.0 % BASO % (test code = 706-2) 0.2 % GRAN MAT x10^3(ANC) (test code = 9758171828) 9.06 10*3/uL 1.99-6.95 H IMM GRAN x10^3 (test code = 1399376612) 0.15 10*3/uL 0.00-0.06 H LYMPH x10^3 (test code = 731-0) 1.27 10*3/uL 1.09-3.23 MONO x10^3 (test code = 742-7) 0.77 10*3/uL 0.36-1.02 EOS x10^3 (test code = 711-2) <0.03 0.06-0.53 L BASO x10^3 (test code = 704-7) <0.03 0.01-0.09 Lab Interpretation (test code = 02842-7) [facility]normal [facility] HospitalSPUTUM [id number] 21:30:00* Test Item Value Reference Range Interpretation Comme nts SPUTUM CULTURE (test code = 622-1) 3+ Respiratory danyell: Commensal upper respiratory microorganisms only. Gram stain (test code = 664-3) No PMNs or Mononuclear cells observed MARGARITA (test code = MARGARITA) Bacterial pathogens associated with lower respiratory infections were not identified, which include Pseudomonas aeruginosa and Staphylococcus aureus (MRSA or MSSA). [facility] HospitalC-REACTIVE [id number] 18:26:00* Test Item Value Reference Range Interpretation Comme nts CRP (test code = 0233753249) 7.9 mg/dL <0.8 H Lab Interpretation (test cod e = 70705-1) Abnormal [facility] HospitalURINE [id number] 13:25:00* Test Item Value Reference Range Interpretation Comme nts URINE CULTURE (test code = 630-4) < 10,000 CFU/mL mixed aerobic organisms - suggests endogenous microbial contamination [facility] HospitalVITAMIN D, [id number] 01:22:00* Test Item Value Reference Range Interpretation Comme nts VIT D 25OH (test code = 38175-2) 15 ng/mL 25-80 L MARGARITA (test code = MARGARITA) Deficiency: <20 ng/mLInsufficiency: 20-24 ng/mLOptimal: 25-80 ng/mL Lab Interpretation (test code = 56306-5) Abnormal [facility] HospitalHEPATIC FUNCTION PANEL (53240) (ALB,T.PRO,BILI T,BU/BC,ALT,AST,ALK PHOS)2020-10-26 23:13:00* Test Item Value Reference Range Interpretation Comme nts TOTAL BILI (test code = 4318523576) 0.4 mg/dL 0.1-1.1 BILI UNCON (test code = 7699836081) 0.3 mg/dL 0.1-1.1 BILI CONJ (test code = 7941667639) 0.0 mg/dL 0.0-0.3 T PROTEIN (test code = 5258708668) 7.2 g/dL 6.3-8.2 ALBUMIN (test code = 4765945543) 3.6 g/dL 3.5-5.0 ALK PHOS (test code = 7775234946) 67 U/L 34-122 ALTv (test code = 1742-6) 89 U/L 5-50 H AST(SGOT) (test code = 9746693615) 78 U/L 13-40 H Lab Interpretation (test cod e = 56709-1) Abnormal [facility] HospitalPROTHROMBIN TIME / [id number] 22:46:00* Test Item Value Reference Range Interpretation Comme nts PROTIME PATIENT (test code = 5964-2) See_Comment H [Automated [employer] ge] The system which generated this result transmitted reference range: 10.1 - 12.6 Seconds. The reference range was not used to interpret this result as normal/abnormal. INR (test code = 6301-6) Normal INR <1.1; Warfarin Therapeutic range 2.0 to 3.0 or 2.5 to 3.5, depending upon the indications. Lab Interpretation (test code = 12434-7) [facility]normal [facility] HospitalD-[id number] 22:46:00* Test Item Value Reference Range Interpretation Comments D-DIMER (test code = 7009599566) See_Comment [Automated message] The system which generated this result transmitted reference range: <0.50 ?g/mL (FEU). The reference range was not used to interpret this result as normal/abnormal. MARGARITA (test code = MARGARITA) This test may be used in conjunction with a clinical pretest probability (PTP) assessment model to exclude venous thromboembolism (VTE) in patients suspected of deep venous thrombosis (DVT) and pulmonary embolism (PE) A D-Dimer value less than 0.50 ?g/ml (FEU) has a negative predicative value of 96 to 100% (95% CI)and 97 to 100% (95% CI) as an aid in the diagnosis of deep vein thrombosis (DVT) and pulmonary embolism when there is low or moderate pretest probability of PE or DVT. D-Dimer values are expressed in initial fibrinogen equivalent units (FEU)" The assay results should be used with other information, including the clinical context, in forming a diagnosis. Lab Interpretation (test code = 46442-9) Normal [facility] WITH [id number] 22:34:00* Test Item Value Reference Range Interpretation Comme nts WBC (test code = 6690-2) See_Comment H [Automated [employer]] The system which generated this result transmitted reference range: 4.20 - 10.70 10*3/?L. The reference range was not used to interpret this result as normal/abnormal. RBC (test code = 789-8) See_Comment [Automated [employer] DGIT] The system which generated this result transmitted reference range: 4.26 - 5.52 10*6/?L. The reference range was not used to interpret this result as normal/abnormal. HGB (test code = 718-7) 14.4 g/dL 12.2-16.4 HCT (test code = 4544-3) 41.8 % 38.4-49.3 MCV (test code = 787-2) 85.0 fL 81.7-95.6 MCH (test code = 785-6) 29.3 pg 26.1-32.7 MCHC (test code = 786-4) 34.4 g/dL 31.2-35.0 RDW-SD (test code = 32131-0) 39.6 fL 38.5-51.6 RDW-CV (test code = 788-0) 12.7 % 12.1-15.4 PLT (test code = 777-3) See_Comment [Automated messa ge] The system which generated this result transmitted reference range: 150 - 328 10*3/?L. The reference range was not used to interpret this result as normal/abnormal. MPV (test code = 01016-4) 9.5 fL 9.8-13.0 L NRBC/100 WBC (test code = 6614838716) See_Comment [Automated [employer]Clipper ssage] The system which generated this result transmitted reference range: 0.0 - 10.0 /100 WBCs. The reference range was not used to interpret this result as normal/abnormal. NRBC x10^3 (test code = 4846862419) <0.01 See_Comment [Automated messa ge] The system which generated this result transmitted reference range: 10*3/?L. The reference range was not used to interpret this result as normal/abnormal. GRAN MAT (NEUT) % (test code = 770-8) 79.2 % IMM GRAN % (test code = 1986181033) 1.00 % LYMPH % (test code = 736-9) 11.5 % MONO % (test code = 5905-5) 8.0 % EOS % (test code = 713-8) 0.0 % BASO % (test code = 706-2) 0.3 % GRAN MAT x10^3(ANC) (test code = 4812907246) 8.93 10*3/uL 1.99-6.95 H IMM GRAN x10^3 (test code = 2025704012) 0.11 10*3/uL 0.00-0.06 H LYMPH x10^3 (test code = 731-0) 1.29 10*3/uL 1.09-3.23 MONO x10^3 (test code = 742-7) 0.90 10*3/uL 0.36-1.02 EOS x10^3 (test code = 711-2) <0.03 0.06-0.53 L BASO x10^3 (test code = 704-7) 0.03 10*3/uL 0.01-0.09 Lab Interpretation (test code = 62960-4) Abnormal [facility] HospitalCT CHEST PULMONARY [id number] 17:01:471. No evidence of acute/chronic pulmonary embolism through the level of theproximal segmental branches. The evaluation of the distal segmental andsubsegmental branches is degraded by significant motion artifact 2. Severe acute multifocal pneumonia with features in keeping with knownCovid 19 infection 3. Questionable right upper pole renal pelviectasis versus a smallparapelvic cyst. If indicated an ultrasound may be obtained. Ophelia Tristan MD., have reviewed this study and agree with theabove report.PROCEDURE: CT CHEST WITH CONTRAST- CHEST PE PROTOCOL CLINICAL INDICATION: OSH CT PE Chest W Contrast ? Comparison: ?None TECHNIQUE: Chest CT PE obtained from [facility] and uploadedto PACS. Only axial and coronal views are provided for interpretation. FINDINGS: HEART AND GREAT VESSELS: The pulmonary vasculature is appropriate opacifiedhowever respiratory motion limits evaluation of the segmental andsubsegmental pulmonary arteries. No filling defects are seen through thelevel of the proximal segmental pulmonary arteries.The pulmonary trunk isnormal in caliber. Thethoracic aorta is normal in caliber. The heart is normal in size. No pericardial abnormalities are identified.The RV to LV is normal. MEDIASTINUM AND LOWER NECK: No central airway lesions are detected. Theesophagus is within normal limits. The included thyroid gland appearsnormal. LYMPH NODES: Scattered small lymph nodes in both sides of the mediastinumand hilar regions. No evidence of intrathoracic lymphadenopathy. LUNGS AND PLEURA: Diffuse groundglass/consolidation are noted throughoutboth lungs, more pronounced in the periphery. No pleural abnormalitydetected. VISUALIZED UPPER ABDOMEN: There may be a small cyst in the upper pole ofthe right kidney versus mild caliectasis OSSEOUS STRUCTURES AND SOFT TISSUES: No focal osseous lesions are detected.The soft tissues appear normal. [facility], Radiant Results Inft User - 10/26/2020 11:18 AM CSTPROCEDURE: CT CHEST WITH CONTRAST- CHEST PE PROTOCOLC LINICAL INDICATION: OSH CT PE Chest W Contrast Comparison: NoneTECHNIQUE: [facility]. Only axial and coronal views are provided for interpretation.FINDINGS:HEART AND GREAT VESSELS: The pulmonary vasculature is appropriate opacifiedhoweverrespiratory motion limits evaluation of the segmental andsubsegmental pulmonary arteries. No filling defects are seen through thelevel of the proximal segmental pulmonary arteries.The pulmonary trunkisnormal in caliber.The thoracic aorta is normal in caliber.The heart is normal in size. No pericardial abnormalities are identified.The RV to LV is normal. MEDIASTINUM AND LOWER NECK: No central airway lesions are detected. Theesophagus is within normal limits. The included thyroid gland appearsnormal.LYMPH NODES: Scattered small lymph nodes in both sides of the mediastinumand hilar regions. No evidence of intrathoracic lymphadenopathy.LUNGS AND PLEURA: Diffuse groundglass/consolidation are noted throughoutboth lungs, more pronounced in the periphery. No pleural abnormalitydetected.VISUALIZED UPPER ABDOMEN: There may be a small cyst in the upper pole ofthe right kidney versus mild caliectasisOSSEOUS STRUCTURES AND SOFT TISSUES: No focal osseous lesions are detected.The soft tissues appear normal.IMPRESSION1. No evidence of acute/chronic pulmonary embolism through the level of theproximal segmental branches. The evaluation of the distal segmental andsubsegmental branches is degraded by significant motion artifact2. Severe acute multifocal pneumonia with features in keeping with knownCovid 19 infection3. Questionable right upper pole renal pelviectasis versus a smallparapelvic cyst. If indicated an ultrasound may be obtained.IOphelia MD., have reviewed this study and agree with theabove report. [facility] (NA, K, CL, CO2, GLUCOSE, BUN, CREATININE, CA)2020-10-26 11:44:00* Test Item Value Reference Range Interpretation Comme nts NA (test code = 0408956636) 138 mmol/L 135-145 K (test code = 6260451424) 4.1 mmol/L 3.5-5.0 CL (test code = 7208769350) 103 mmol/L 98-108 CO2 TOTAL (test code = 6465549368) 27 mmol/L 23-31 AGAP (test code = 7098676618) 2-16 BUN (test code = 8900304802) 15 mg/dL 7-23 GLUCOSE (test code = 2406162020) 155 mg/dL 70-110 H CREATININE (test code = 9480090161) 0.91 mg/dL 0.60-1.25 CALCIUM (test code = 4845664076) 8.9 mg/dL 8.6-10.6 eGFR Calculation (Non-) (test code = 6800124601) mL/min/1.73m2 eGFR Calculation () (test code = 8740706399) mL/min/1.73m2 MARGARITA (test code = MARGARITA) Association of Glomerular Filtration Rate (GFR) and Staging of Kidney Disease* + --+ --+ ------+| GFR (mL/min/1.73 m2) ?| With Kidney Damage ?| ?Without Kidney Damage+ --------+ --------+ +| ?>90 ?| ?Stage one ?| ? Normal ?+ ---+ ---+ -------+| ?60-89 ?| ?Stage two ?| ? Decreased GFR ? + --+ --+ ------+| ?30-59 ?| ?Stage three ?| ? Stage three ? + --+ --+ ------+| ?15-29 ?| ?Stage four ? | ? Stage four ?+ ---+ ---+ -------+| ?<15 (or dialysis) ? ?| ?Stage five ? | ? Stage five ?+ ---+ ---+ -------+ *Each stage assumes the associated GFR level has been in effect for at least three months. ?Stages 1 to 5, with or without kidney disease, indicate chronic kidney disease. Notes: Determination of stages one and two (with eGFR >59mL/min/1.73 m2) requires estimation of kidney damage for at least three months as defined by structural or functional abnormalities of the kidney, manifested by either:Pathological abnormalities or Markers of kidney damage (including abnormalities in the composition of the blood or urine or abnormalities in imaging tests). Lab Interpretation (test code = 19008-9) [facility]normal [facility] HospitalLAB ONLY COVID [id number] 04:38:00COVID DMT InterpretationInterpretation/Recommendations: Molecular NAAT Tests for Active Infection with the SARS-CoV-2 Virus: The current test result is positive for the SARS-CoV-2 virus that causes COVID-19 illness. In qkbl-ea-gqjfjtdm illness, the patient may be considered no longer infectious when it has been after 10 days since symptom onset, the patient has been afebrile for 24 hours without the use of fever-reducing medications, AND other symptoms of COVID-19 are improving. However, in patients who have been severely ill with COVID-19 or are severely immunocompromised, isolation up to 20days after symptom onset is recommended. Asymptomatic patients are considered infectious for the first 10 days subsequent to the initial positive test result. From the onset of symptoms, if any, thisresult is likely to remain positive up to 2-4 weeks. Tests for IgM and/or IgG Antibodies to the SARS-CoV-2 Virus: ? Testing for IgM and IgG antibodies approximately 3 weeks after illness onset will likely indicate whether the patient has produced antibodies to the SARS-CoV-2 virus. However, some patients may take longer to develop detectable antibodies, while some patients who were infected with SARS-CoV-2 may never develop antibodies. While antibodies to SARS-CoV-2 may provide some degree of im munity, at this time the strength and duration of the antibody response is unknown. Interpretation Result Comments:These interpretation comments are based upon all COVID-19 testing the patient has had at [facility], including molecular NAAT testing (more commonly known as PCR testing and Rapid ID Now testing) and antibody testing.It does not take into account any testing that a patient has had outside of the [facility] medical record. [facility] LABORATORY SERVICESCOVID BdcxnvcDOFK-QtP-0 Rapid ID NOW (no units) ? ? Date ? Value ? 10/25/2020 ? Positive (A) ? [facility]ORATORY SERVICESUnTyler County HospitalONELLA URINARY ANTIGEN [id number] 00:13:00* Test Item Value Reference Range Interpretation Comme nts Legionella Urinary Antigen (test code = 5727998214) Negative Negative MARGARITA (test code = MARGARITA) Negative for L. pneumophilia serogroup I antigen in urine suggesting no recent or current infection. Infection due to Legionella cannot be ruled out since other serogroups and species may cause disease. Furthermore, antigens may not be present in urine during early stage of infection, or the level of antigen present in urine may be below the detection limit of the test. Lab Interpretation (test code = 11176-8) Normal [facility] HospitalPNEUMOCOCCAL [id number] 00:12:00* Test Item Value Reference Range Interpretation Comme nts S. pneumoniae antigen (test code = 9292290937) Negative Negative Lab Interpretation (test cod e = 43494-1) Normal [facility] HospitalURINALYSIS2021-03-04 23:11:00* Test Item Value Reference Range Interpretation Comme nts APPEARANCE (test code = 5883998077) Hazy Clear A COLOR (test code = 9716727518) Straw Yellow A PH (test code = 0637383382) 4.8-8.0 SP GRAVITY (test code = 3655876763) 1.003-1.030 GLU U QUAL (test code = 3606989819) Normal Normal BLOOD (test code = 2223196698) Negative Negative KETONES (test code = 4610666876) Negative Negative PROTEIN (test code = 2887-8) Negative Negative UROBILIN (test code = 4145741127) Normal Normal BILIRUBIN (test code = 8679116305) Negative Negative NITRITE (test code = 6692717291) Negative Negative LEUK ОЛЬГА (test code = 8411946078) Negative Negative RBC/HPF (test code = 2049224347) <1 See_Comment [Automated messa ge] The system which generated this result transmitted reference range: 0 - 3 HPF. The reference range was not used to interpret this result as normal/abnormal. WBC/HPF (test code = 1800419234) <1 See_Comment [Automated messa ge] The system which generated this result transmitted reference range: 0 - 5 HPF. The reference range was not used to interpret this result as normal/abnormal. BACTERIA (test code = 8211741332) Negative Negative Lab Interpretation (test code = 68126-4) Abnormal [facility] HospitalMRSA / MSSA Screen by PCR, [id number] 21:43:00* Test Item Value Reference Range Interpretation Comme nts MSSA Screen by PCR, Nares (t est code = 88711-6) Negative Negative MRSA/MSSA Positive? (test co de = 0152725492) No No Lab Interpretation (test cod e = 57157-0) Normal [facility] HospitalSPUTUM [id number] 20:05:00* Test Item Value Reference Range Interpretation Comme nts SPUTUM CULTURE (test code = 622-1) Specimen cellular elements do not represent lower respiratory tract. Specimen rejected for routine bacterial culture. Suggest reorder and recollection. Gram stain (test code = 664-3) Numerous Epithelial cells [facility] HospitalCERULOPLASMIN2021-03-04 17:18:00* Test Item Value Reference Range Interpretation Comme nts CERULO (test code = 3860301734) 39 mg/dL 25-63 Lab Interpretation (test cod e = 17052-8) Normal [facility] HospitalTROPONIN [id number] 13:40:00* Test Item Value Reference Range Interpretation Comme nts TROPONIN I (test code = 8376159874) 0.001 ng/mL See_Comment [Automated message] The system which generated this result transmitted reference range: <=0.034. The reference range was not used to interpret this result as normal/abnormal. MARGARITA (test code = MARGARITA) Equal or Less than 0.034 ng/ml---Normal ?Note: Cardiac troponin begins to rise 3-4 hours after the onset of ischemia. Repeat in 4-6 hours if the sample was drawn within 3-4 hours of the onset of the symptom and found normal. Between 0.035 and 0.120 ng/mL--- Borderline. Questionable myocardial injury or necrosis ? ?Note: Serial measurement may be necessary to confirm or exclude the diagnosis of myocardial injury or necrosis; Clinical correlation (symptoms, EKGs, imaging studies, and others) required; Repeat in 4-6 hours if clinically indicated. ? Equal or Higher than 0.121 ng/mL---Abnormal. Myocardial Injury or Necrosis Likely ? Biotin has been reported to cause a negative bias, interpret results relative to patient's use of biotin. ? Lab Interpretation (test code = 98930-5) Normal [facility] HospitalPROCALCITONIN2021-03-04 10:15:00* Test Item Value Reference Range Interpretation Comme nts Procalcitonin (test code = 2277741607) 0.14 ng/mL <0.07 H MARGARITA (test code = MARGARITA) INTERPRETATION OF PROCALCITONIN RESULTS IN ADULTS >= 18 YEARS OF AGE Initiation and discontinuation of antibiotics on patients with suspected or confirmed Lower Respiratory Tract Infection in Adults >= 18 years of age. + +-------- --------+ + -----+|Procalcitonin |Interpretation ?|Antibiotic ? ? |Considerations ? |ng/mL ? | ?|recommendation | ? + +-------- --------+ + -----+| <0.1 ? | Bacterial ? ? ?| Strongly ? ? ?| ? | ?| infection very | discouraged ? | Overruling: ? | ?| unlikely ? ? ? | ? | ? Clinically unstable ? ? ? + +-------- --------+ + ? High risk for adverse ? ? | <0.25 ?| Bacterial ? ? ?| Discouraged ? | ? outcome ? | ?| infection ? ? ?| ? | ? SEE IMPORTANT NOTE ?| ?| unlikely ? ? ? | ? | ? + +-------- --------+ + -----+| >=0.25 ? ? ? | Bacterial ? ? ?| Encouraged ? ?| ? | ?| infection ? ? ?| ? | ? | ?| likely ? | ? | Consider treatment failure ?+ +------- ---------+ -+ if levels does not decrease | >0.5 ? | Bacterial ? ? ?| Strongly ? ? ?| appropriately ? | ?| infection very | encouraged ? ?| ? | ?| likely ? | ? | ? + +-------- --------+ + -----+ Discontinuation of antibiotics in high-acuity patients with suspected or confirmed sepsis in Adults >= 18 years of age. + +-------- --------+ + -----+|Procalcitonin |Interpretation ?|Antibiotic ? ? |Considerations ? |ng/mL ? | ?|recommendation | ? + +-------- --------+ + -----+| <0.25 ?| Bacterial ? ? ?| Strongly ? ? ?| ? | ?| infection very | discouraged ? | Overruling: ? | ?| unlikely ? ? ? | ? | ? Clinically unstable ? ? ? + +-------- --------+ + ? High risk for adverse ? ? | <0.5 or drop | Bacterial ? ? ?| Discouraged ? | ? outcome ? | >80% from ? ?| infection ? ? ?| ? | ? SEE IMPORTANT NOTE ?| highest PCT ?| unlikely ? ? ? | ? | ? | level ?| ?| ? | ? + +-------- --------+ + -----+| >=0.5 ?| Bacterial ? ? ?| Encouraged ? ?| ? | ?| infection ? ? ?| ? | ? | ?| likely ? | ? | Consider treatment failure ?+ +------- ---------+ -+ if levels does not decrease | >1.0 ? | Bacterial ? ? ?| Strongly ? ? ?| appropriately ? | ?| infection very | encouraged ? ?| ? | ?| likely ? | ? | ? + +-------- --------+ + -----+ Percentage of drop of Procalcitonin calculation for Discontinuation of antibiotics in high-acuity patients with suspected or confirmed sepsis in Adults >= 18 years of age. ? Procalcitonin highest{}-Procalcitonin current{}Delta Procalcitonin = x100% ? Procalcitonin current {} IMPORTANT NOTE: Procalcitonin may be elevated without bacterial infection by physiologic stress related to trauma, de la torre, chronic dialysis, metastatic cancer, surgery in the past seven days, malaria, some fungal infections, and some forms of vasculitis. The interpretation algorithm may not apply to patients with immunosuppression (equivalent of >10 mg of prednisone daily), HIV with CD4 cell count < 350 cells/mm3, active malignancy on systemic chemotherapy, solid organ transplant or hematopoietic stem cell transplantation, or hospital acquired pneumonia. Additionally, some clinical trials of procalcitonin have excluded patients with shock requiring vasopressor use, acute respiratory failure requiring mechanical ventilation, or those with known lung abscess/empyema. For further information please refer to:[email or web address] Lab Interpretation (test code = 17532-9) Abnormal [facility] HospitalAC PANEL 20 + LACTIC [id number] 08:01:00* Test Item Value Reference Range Interpretation Comme nts PH (test code = 2) 7.35-7.45 PCO2 (test code = 2573400652) See_Comment L [Automated messa ge] The system which generated this result transmitted reference range: 35 - 45 mmHg. The reference range was not used to interpret this result as normal/abnormal. PO2 (test code = 3606779823) See_Comment H [Automated messa ge] The system which generated this result transmitted reference range: 80 - 100 mmHg. The reference range was not used to interpret this result as normal/abnormal. HCO3 (test code = 6461109426) See_Comment L [Automated messa ge] The system which generated this result transmitted reference range: 22 - 26 mEq/L. The reference range was not used to interpret this result as normal/abnormal. BE (test code = 2408034146) See_Comment L [Automated messa ge] The system which generated this result transmitted reference range: -3.0 - 3.0 mEq/L. The reference range was not used to interpret this result as normal/abnormal. THB (test code = 7541577571) 14.0 g/dL 13.5-18.0 %O2HB (test code = 2367690393) 97.8 % 94.0-99.0 %COHB ART (test code = 0721230015) 0.1 % 0.0-1.5 %METHB ART (test code = 1173022908) 0.0 % 0.4-1.5 L VOL%O2 ART (test code = 8927799122) 19.4 % 15.0-23.0 NA (test code = 1181190185) 133 mmol/L 135-145 L K+ (test code = 9853404685) 3.8 mmol/L 3.5-5.0 AC CA IONZ (test code = 8556835111) 4.70 mg/dL 4.50-5.30 GLUCOSE (test code = 9284897028) 100 mg/dL 70-110 LACTIC ACID (test code = 6233008397) 0.77 mmol/L 0.50-2.20 Lab Interpretation (test code = 91195-5) Abnormal [facility] METABOLIC PANEL (NA, K, CL, CO2, GLUCOSE, BUN, CREATININE, CA)2020-10-25 07:57:00* Test Item Value Reference Range Interpretation Comme nts NA (test code = 2852405104) 136 mmol/L 135-145 K (test code = 5567122870) 4.6 mmol/L 3.5-5.0 Slight hemolysis CL (test code = 5498871685) 108 mmol/L 98-108 CO2 TOTAL (test code = 9181794665) 18 mmol/L 23-31 L AGAP (test code = 7694653899) 2-16 BUN (test code = 7789746342) 12 mg/dL 7-23 Slight hemolysis GLUCOSE (test code = 1052594033) 100 mg/dL 70-110 CREATININE (test code = 2485204592) 0.98 mg/dL 0.60-1.25 CALCIUM (test code = 2480051046) 8.0 mg/dL 8.6-10.6 L eGFR Calculation (Non-) (test code = 2233025969) mL/min/1.73m2 eGFR Calculation () (test code = 8761043050) mL/min/1.73m2 MARGARITA (test code = MARGARITA) Association of Glomerular Filtration Rate (GFR) and Staging of Kidney Disease* + -----+ --------+ +| GFR (mL/min/1.73 m2) ?| With Kidney Damage ?| ?Without Kidney Damage+ +------- +---- --+| ?>90 ?| ?Stage one ?| ? Normal ?+ ------+ ---------+--------- +| ?60-89 ?| ?Stage two ?| ? Decreased GFR ? + -----+ --------+ +| ?30-59 ?| ?Stage three ?| ? Stage three ? + -----+ --------+ +| ?15-29 ?| ?Stage four ? | ? Stage four ?+ ------+ ---------+--------- +| ?<15 (or dialysis) ? ?| ?Stage five ? | ? Stage five ?+ ------+ ---------+--------- + *Each stage assumes the associated GFR level has been in effect for at least three months. ?Stages 1 to 5, with or without kidney disease, indicate chronic kidney disease. Notes: Determination of stages one and two (with eGFR >59mL/min/1.73 m2) requires estimation of kidney damage for at least three months as defined by structural or functional abnormalities of the kidney, manifested by either:Pathological abnormalities or Markers of kidney damage (including abnormalities in the composition of the blood or urine or abnormalities in imaging tests). Lab Interpretation (test code = 79890-8) Abnormal [facility] HospitalMAGNESIUM2021-03-04 07:57:00* Test Item Value Reference Range Interpretation Comme nts MAGNESIUM (test code = 0629567017) 2.0 mg/dL 1.7-2.4 Lab Interpretation (test cod e = 87412-9) Normal [facility] HospitalHEPATIC FUNCTION PANEL (39473) (ALB,T.PRO,BILI T,BU/BC,ALT,AST,ALK PHOS)2020-10-25 07:57:00* Test Item Value Reference Range Interpretation Comme nts TOTAL BILI (test code = 3187672391) 0.7 mg/dL 0.1-1.1 BILI UNCON (test code = 7553418366) 0.4 mg/dL 0.1-1.1 BILI CONJ (test code = 2671897273) 0.0 mg/dL 0.0-0.3 T PROTEIN (test code = 2140032012) 6.1 g/dL 6.3-8.2 L ALBUMIN (test code = 4093309591) 3.1 g/dL 3.5-5.0 L ALK PHOS (test code = 0912378610) 57 U/L 34-122 ALTv (test code = 1742-6) 61 U/L 5-50 H AST(SGOT) (test code = 2135729758) 66 U/L 13-40 H Lab Interpretation (test cod e = 83629-3) Abnormal [facility] HospitalLACTATE [id number] 07:40:00* Test Item Value Reference Range Interpretation Comme nts LDH (test code = 5764248521) 1004 U/L 300-600 H Lab Interpretation (test cod e = 07470-9) Abnormal [facility] HospitalCOVID-19 (ID NOW RAPID TESTING)2020-10-25 07:25:00* Test Item Value Reference Range Interpretation Comme nts SARS-CoV-2 Rapid ID NOW (test code = 31185-0) Positive Not Detected A MARGARITA (test code = MARGARITA) ID NOW COVID-19 As say is an isothermal nucleic acid amplification test intended for the qualitative detection of nucleic acid from SARS-CoV-2 viral RNA in nasopharyngeal (TRAVERTINE INSTALLER) specimens. It is used under Emergency Use Authorization (EUA) by FDA. The limit of detection (LOD) of the assay is 125 Genome Equivalents/mL. A positive result is indicative of the presence of SARS-CoV-2 RNA. ?Clinical correlation with patient history and other diagnostic information is necessary to determine patient infection status. A negative (Not Detected) result does not preclude SARS-CoV-2 infection. In patients with clinical symptoms and other tests that are consistent with SARS-CoV-2 infection, negative results should be treated as presumptive negative and a new specimen should be tested with alternative PCR molecular test. Invalid: Please collect a new specimen for repeat patient testing if clinically indicated. Lab Interpretation (test code = 70394-8) Abnormal [facility]-[id number] 07:24:00* Test Item Value Reference Range Interpretation Comments D-DIMER (test code = 4902449155) See_Comment H [Automated message] The system which generated this result transmitted reference range: <0.50 ?g/mL (FEU). The reference range was not used to interpret this result as normal/abnormal. MARGARITA (test code = MARGARITA) This test may be used in conjunction with a clinical pretest probability (PTP) assessment model to exclude venous thromboembolism (VTE) in patients suspected of deep venous thrombosis (DVT) and pulmonary embolism (PE) A D-Dimer value less than 0.50 ?g/ml (FEU) has a negative predicative value of 96 to 100% (95% CI)and 97 to 100% (95% CI) as an aid in the diagnosis of deep vein thrombosis (DVT) and pulmonary embolism when there is low or moderate pretest probability of PE or DVT. D-Dimer values are expressed in initial fibrinogen equivalent units (FEU)" The assay results should be used with other information, including the clinical context, in forming a diagnosis. Lab Interpretation (test code = 89116-8) Abnormal [facility] WITH [id number] 07:18:00* Test Item Value Reference Range Interpretation Comme nts WBC (test code = 6690-2) See_Comment [Automated [employer]] The system which generated this result transmitted reference range: 4.20 - 10.70 10*3/?L. The reference range was not used to interpret this result as normal/abnormal. RBC (test code = 789-8) See_Comment [Automated [facility] [employer] [facility] [employer] [facility]] The system which generated this result transmitted reference range: 4.26 - 5.52 10*6/?L. The reference range was not used to interpret this result as normal/abnormal. HGB (test code = 718-7) 15.3 g/dL 12.2-16.4 HCT (test code = 4544-3) 44.5 % 38.4-49.3 MCV (test code = 787-2) 84.8 fL 81.7-95.6 MCH (test code = 785-6) 29.1 pg 26.1-32.7 MCHC (test code = 786-4) 34.4 g/dL 31.2-35.0 RDW-SD (test code = 44919-8) 39.7 fL 38.5-51.6 RDW-CV (test code = 788-0) 12.9 % 12.1-15.4 PLT (test code = 777-3) See_Comment [Automated messa ge] The system which generated this result transmitted reference range: 150 - 328 10*3/?L. The reference range was not used to interpret this result as normal/abnormal. MPV (test code = 11227-3) 10.5 fL 9.8-13.0 NRBC/100 WBC (test code = 1808447718) See_Comment [Automated [employer] ssage] The system which generated this result transmitted reference range: 0.0 - 10.0 /100 WBCs. The reference range was not used to interpret this result as normal/abnormal. NRBC x10^3 (test code = 1477053281) <0.01 See_Comment [Automated messa ge] The system which generated this result transmitted reference range: 10*3/?L. The reference range was not used to interpret this result as normal/abnormal. GRAN MAT (NEUT) % (test code = 770-8) 77.6 % IMM GRAN % (test code = 8002412017) 1.00 % LYMPH % (test code = 736-9) 16.6 % MONO % (test code = 5905-5) 4.6 % EOS % (test code = 713-8) 0.0 % BASO % (test code = 706-2) 0.2 % GRAN MAT x10^3(ANC) (test code = 9687585453) 6.23 10*3/uL 1.99-6.95 IMM GRAN x10^3 (test code = 9696128323) 0.08 10*3/uL 0.00-0.06 H LYMPH x10^3 (test code = 731-0) 1.33 10*3/uL 1.09-3.23 MONO x10^3 (test code = 742-7) 0.37 10*3/uL 0.36-1.02 EOS x10^3 (test code = 711-2) <0.03 0.06-0.53 L BASO x10^3 (test code = 704-7) <0.03 0.01-0.09 Lab Interpretation (test code = 73753-6) Abnormal [facility] HospitalXR CHEST 1 [id number] 06:52:16Impression: Bilateral lung opacities compatible with known Covid 19pneumonia.Exam: XR CHEST 1 10/24/2020 11:47 PM Clinical History: covid Comparison: None Technique: frontal view of the chest Findings:Bilateral diffuse hazy patchy and band shaped opacities. Low lung volume.The lungs are clear. ?Nopleural effusion. ?No pneumothorax. The cardiac size is normal. No acute osseous abnormality. [facility], Radiant Results Inft User - 10/25/2020 12:53 AM CSTExam: XR CHEST 1 10/24/2020 11:47 PMClinical History: covid Comparison: NoneTechnique: frontal view of the chestFindings:Bilateral diffuse hazy patchy and band shaped opacities. Low lung volume.The lungs are clear. No pleural effusion. No pneumothorax. The cardiac size is normal. No acute osseous abnormality.IMPRESSIONImpression: Bilateral lung opacities compatible with known Covid 19pneumonia.[facility]
[2024-08-03] MEDS ORDERED: MORPHINE 4 MG/ML SYR ONE (07:42)
[2024-08-03 07:49] LABS: Absolute Basophils 0.1 K/uL (0-0.5); Absolute Eosinophils 0.2 K/uL (0-0.5); Absolute Lymphocytes (CBC) 2.5 K/uL (0.7-4.9); Absolute Monocytes 1.2 K/uL (0.1-1.3); Absolute Neutrophil 10.8 K/uL (1.8-8.0); Basophils % 0.5 % (0-1.3); Hematocrit 43.9 % (39.6-49.0); Hemoglobin 14.7 g/dL (13.6-17.9); Lymphocytes % 17.2 % (15.3-44.8); MCH 28.5 pg (27.0-35.0); MCHC 33.3 g/dL (32.0-36.0); MCV 85.3 fL (80-100); MPV 8.8 fL (7.6-11.3); Monocytes % 8.2 % (3.3-12.3); Neutrophils % 73.1 % (41.7-73.7); Nucleated Red Blood Cells % 0.1 % (0-0); Platelets 248 thou/uL (152-406); RBC Red Blood Cell Count 5.15 M/uL (4.33-5.43); Red Cell Distribution Width 13.5 % (12.1-15.2)
[2024-08-03 07:53] LABS: Specific Gravity 1.014 (1.005-1.030); Sqamous Epithelial None Seen /HPF (None Seen); Urine Bacteria <20 /HPF (<20); Urine Bilirubin NEGATIVE (Negative); Urine Blood Negative (Negative); Urine Clarity Turbid (Clear); Urine Color Colorless (Yellow); Urine Culture Reflex Order NOT NEEDED; Urine Glucose NEGATIVE (Negative); Urine Ketones NEGATIVE (Negative); Urine Microscopic Reflex YN ORDER UMIC; Urine Mucus Slight /HPF (None Seen); Urine Nitrite NEGATIVE (Negative); Urine Protein NEGATIVE (Negative); Urine RBC <5 /HPF (None Seen); Urine Urobilinogen Normal (Normal); Urine WBC <5 /HPF (<5); Urine pH 5.5 (5.0-7.0)
--- NOTE | 2024-08-03 08:00 | RAD REPORT ---
EXAMINATION: CT ABDOMEN AND PELVIS WITH CONTRAST CLINICAL INDICATION: Male, 38 years old.ABD PAIN TECHNIQUE: CT abdomen and pelvis was performed, after the administration of IV contrast, as per [facility] protocol. Axial, sagittal and coronal reconstructions were obtained. One or more of the following dose reduction techniques were used: Automated exposure control, adjustment of the mA and/o r kV according to patient size, and/or iterative reconstruction. Unless otherwise specified, incidental findings do not require dedicated imaging follow-up. [id number]. COMPARISON: No prior exam. FINDINGS: LOWER CHEST: The visualized lung bases are clear. Circumferential thickening distal esophagus could r eflect mild esophagitis. LIVER: Normal in size and contour. No focal lesion. GALLBLADDER/BILE DUCT: No biliary ductal dilatation.? PANCREAS: No significant abnormality. SPLEEN: Normal size. No focal lesion. ADRENALS: Normal; no mass. KIDNEYS AND URETERS: Bilateral renal lesions which are either benign in appearance or too small to ac curately characterize but statistically benign. Punctate left nephrolithiasis. GASTROINTESTINAL TRACT: Acute nonperforated appendicitis. The appendix is retrocecal. No bowel obstru ction. PERITONEUM: No ascites. Small fat-containing umbilical hernia. Mildly enlarged ileocolic mesenteric l ymph nodes which are presumably reactive. LYMPH NODES: No lymphadenopathy. ABDOMINAL AORTA AND OTHER VESSELS: Normal caliber aorta and IVC. URINARY BLADDER: Normal contour. REPRODUCTIVE ORGANS: No pathologic process MUSCULOSKELETAL: No acute or suspicious osseous abnormality. ADDITIONAL FINDINGS: None. IMPRESSION: Acute nonperforated appendicitis. Conveyed to Dr. Bull by Dr. Nina at 0757 on 08/03/24
--- NOTE | 2024-08-03 08:02 | EDPHYS ---
Physician Documentation [facility] Name: Luis Leija Age: 38 yrs Sex: Male : 1985 Arrival Date: 08/03/2024 Time: 07:08 Bed 7 Private MD: ED Physician Baldev Bull HPI: 08/03 07:55 This 38 yrs old Male presents to ER via Ambulatory with complaints of Flank Pain ms3 - Right. 08:01 Luis Leija presents to the Emergency Department with right lower quadrant abdominal ms3 pain that began at approximately 3:30 am. The patient reports the pain intensity as an 8 out of 10. There is no associated nausea or vomiting, and the patient reports not having a fever or chills. The last intake of food was at 11:30 pm with a sip of water in the morning, and the patient currently has no appetite. The patient has a history of lipoma surgery, which was on the left side of his abdomen.. Historical: - Allergies: 07:17 No Known Allergies; ll1 - Home Meds: 07:17 None [Active]; ll1 - PMHx: 07:17 None; ll1 - PSHx: 07:17 "lipoma removed" from abdominal area; ll1 - Immunization history:: Adult Immunizations up to date. - Infectious Disease History:: Denies. - Social history:: Smoking status: Patient denies any tobacco usage or history of. ROS: 08:01 Constitutional: Negative for fever, and chills. Cardiovascular: Negative for chest ms3 pain, and palpitations. Respiratory: Negative for shortness of breath, cough, wheezing, and pleuritic chest pain, 08:01 MS/Extremity: Negative for injury and deformity, Skin: Negative for injury, rash, and discoloration, 08:01 Abdomen/GI: Positive for abdominal pain, Exam: 08:01 Constitutional: This is a well developed, well nourished patient who is awake, alert, ms3 and in no acute distress. Head/Face: Normocephalic, atraumatic. Chest/axilla: Normal chest wall appearance and motion. Nontender with no deformity. Cardiovascular: Regular rate and rhythm with a normal S1 and S2. No gallops, murmurs, or rubs. Normal PMI, no JVD. No pulse deficits. Respiratory: Lungs have equal breath sounds bilaterally, clear to auscultation and percussion. No rales, rhonchi or wheezes noted. No increased work of breathing, no retractions or nasal flaring. 08:01 Abdomen/GI: Inspection: abdomen appears normal, Bowel sounds: normal, Palpation: moderate abdominal tenderness, in the right lower quadrant, Vital Signs: 07:16 BP 149 / 100; Pulse 86; Resp 17; Temp 97.6; Pulse Ox 96% on R/A; Weight 83.46 kg; ll1 Height 5 ft. 6 in. ; Pain 8/10; 08:11 BP 150 / 105; Pulse 81; Resp 17; Pulse Ox 99% on R/A; ap3 08:46 BP 144 / 98; Pulse 90; Resp 16; Pulse Ox 99% ; ap3 10:08 BP 127 / 90; Pulse 88; Resp 16; Pulse Ox 95% ; bp 07:16 Body Mass Index 29.70 (83.46 kg, 167.64 cm) ll1 07:16 Pain Scale: Adult ll1 MDM: 07:25 Medical Screening Exam initiated ms3 08:04 Differential diagnosis: appendicitis, bowel obstruction, diverticulitis. Data reviewed: ms3 vital signs, nurses notes, lab test result(s), radiologic studies, and as a result, I will admit patient. Consideration of Admission/Observation Patient was admitted/placed on observation. Management of patient was discussed with the following: Hospitalist: Dr Florez. I considered the following discharge prescriptions or medication management in the emergency department Medications were administered in the Emergency Department. See MAR. Counseling: I had a detailed discussion with the patient and/or guardian regarding the historical points, exam findings, and any diagnostic results supporting the discharge/admit diagnosis, lab results, radiology results, the need for further work-up and treatment in the hospital. ED course: Discussed CT with patient and plan for admission. Patient understands/ agrees with plan. All questions answered. Patient remains in stable condition.. 08/03 07:26 Order name: CBC with Diff; Complete Time: 07:57 ms3 08/03 07:26 Order name: CMP; Complete Time: 08:09 ms3 12 07:26 Order name: Urinalysis w/ reflexes; Complete Time: 07:57 ms3 08/03 09:24 Order name: Basic Metabolic Panel EDMS 08/03 09:24 Order name: Basic Metabolic Panel EDMS 08/03 09:24 Order name: Basic Metabolic Panel EDMS 08/03 09:24 Order name: CBC with Automated Diff EDMS 08/03 09:24 Order name: CBC with Automated Diff EDMS 08/03 09:24 Order name: CBC with Automated Diff EDMS 08/03 09:24 Order name: Lipid Profile EDMS 08/03 09:24 Order name: Lipid Profile EDMS 08/03 09:24 Order name: Magnesium EDMS 08/03 09:24 Order name: Magnesium EDMS 08/03 09:24 Order name: Magnesium EDMS 08/03 09:24 Order name: Phosphorus EDMS 08/03 09:24 Order name: Phosphorus EDMS 08/03 09:24 Order name: Phosphorus EDMS 08/03 07:26 Order name: CT Abd/Pelvis - IV Contrast Only; Complete Time: 08:07 ms3 08/03 09:24 Order name: CONS Physician Consult EDMS 08/03 07:26 Order name: IV Saline Lock; Complete Time: 07:43 ms3 08/03 07:26 Order name: Labs collected and sent; Complete Time: 07:43 ms3 Administered Medications: 07:54 Drug: morphine IVP or IV 4 mg IVP once over 4 mins {Note: pain 8/10 on pain scale.} ap3 Route: IVP; Infused Over: 4 mins; Site: right antecubital; 08:47 Follow up: Response: No adverse reaction; Pain is decreased; RASS: Alert and Calm (0) ap3 08:16 Drug: Piperacillin-Tazobactam IVPB 3.375 grams IVPB once over 60 mins; (mix in NS 100 ap3 mL) Route: IVPB; Infused Over: 60 mins; Site: right antecubital; 08:48 Follow up: IV Status: Completed infusion; IV Intake: 100ml ap3 Disposition Summary: 08/03/24 08:01 Hospitalization Ordered Notes: Hospitalization Status: Observation ms3 Provider: Fox Florez ms3 Location: Telemetry/MedSurg (observation) ms3 Condition: Stable ms3 Problem: new ms3 Symptoms: are unchanged ms3 Bed/Room Type: Standard ms3 Room Assignment: ms3 Diagnosis - Acute appendicitis with localized peritonitis ms3 Forms: - Medication Reconciliation Form ms3 - SBAR form ms3 - Leadership Thank You Letter ms3 Signatures: Dispatcher [employer] Dea Renteria RN RN ap3 Jordy Araya RN RN ll1 Baldev Bull DO DO ms3 Corrections: (The following items were deleted from the chart) 07:18 07:17 PSHx: None; ll1 ll1
--- NOTE | 2024-08-03 08:02 | ER ---
Nurse's Notes [facility] Name: Luis Leija Age: 38 yrs Sex: Male : 1985 Arrival Date: 08/03/2024 Time: 07:08 Bed 7 Private MD: Diagnosis: Acute appendicitis with localized peritonitis Presentation: 08/03 07:16 Chief complaint: Patient states: R flank pain started at 4 AM. Burning pain to ll1 epigastric area. No N/V/D or fever. Coronavirus screen: Client denies travel out of the [place] in the last 14 days. Client presents with at least one sign or symptom that may indicate coronavirus-19. Standard/surgical mask placed on the client. Ebola Screen: Patient denies travel to an Ebola-affected area in the 21 days before illness onset. Initial Sepsis Screen: Does the patient meet any 2 criteria? No. Patient's initial sepsis screen is negative. Does the patient have a suspected source of infection? No. Patient's initial sepsis screen is negative. Risk Assessment: Do you want to hurt yourself or someone else? Patient reports no desire to harm self or others. Onset of symptoms was August 03, 2024. 07:16 Method Of Arrival: Ambulatory ll1 07:16 Acuity: ALENA 3 ll1 Triage Assessment: 07:15 General: Appears in no apparent distress. Behavior is calm, cooperative, appropriate ll1 for age. Pain: Complains of pain in abdomen Pain currently is 9 out of 10 on a pain scale. Quality of pain is described as aching, crampy. GI: Reports lower abdominal pain, indigestion. Historical: - Allergies: 07:17 No Known Allergies; ll1 - Home Meds: 07:17 None [Active]; ll1 - PMHx: 07:17 None; ll1 - PSHx: 07:17 "lipoma removed" from abdominal area; ll1 - Immunization history:: Adult Immunizations up to date. - Infectious Disease History:: Denies. - Social history:: Smoking status: Patient denies any tobacco usage or history of. Screenin:[facility] ED Fall Risk Assessment (Adult) History of falling in the last 3 months, bp including since admission No falls in past 3 months (0 pts) Confusion or Disorientation No (0 pts) Intoxicated or Sedated No (0 pts) Impaired Gait No (0 pts) Mobility Assist Device Used No (0 pt) Altered Elimination No (0 pt) Score/Fall Risk Level 0 - 2 = Low Risk Oriented to surroundings. Abuse screen: Denies threats or abuse. Denies injuries from another. Nutritional screening: No deficits noted. Tuberculosis screening: No symptoms or risk factors identified. Assessment: 07:21 General: Appears in no apparent distress. Behavior is calm, cooperative, appropriate bp for age. Pain: Complains of pain in abdomen. Neuro: No deficits noted. Cardiovascular: No deficits noted. Respiratory: No deficits noted. GI: Reports epigastric pain. : Reports pain in right flank(s). EENT: No deficits noted. Derm: No deficits noted. Musculoskeletal: No deficits noted. 08:10 Reassessment: Patient and/or family updated on plan of care and expected duration. Pain ap3 level reassessed. Patient is alert, oriented x 3, equal unlabored respirations, skin warm/dry/pink. Neuro: Level of Consciousness is awake, alert, obeys commands, Oriented to person, place, time, situation, Appropriate for age. Vital Signs: 07:16 BP 149 / 100; Pulse 86; Resp 17; Temp 97.6; Pulse Ox 96% on R/A; Weight 83.46 kg; ll1 Height 5 ft. 6 in. ; Pain 8/10; 08:11 BP 150 / 105; Pulse 81; Resp 17; Pulse Ox 99% on R/A; ap3 08:46 BP 144 / 98; Pulse 90; Resp 16; Pulse Ox 99% ; ap3 10:08 BP 127 / 90; Pulse 88; Resp 16; Pulse Ox 95% ; bp 07:16 Body Mass Index 29.70 (83.46 kg, 167.64 cm) ll1 07:16 Pain Scale: Adult ll1 ED Course: 07:10 Patient arrived in ED. ra3 07:13 Randolph Lenz, MATTHEW is Primary Nurse. bp 07:14 Arm band placed on Patient placed in an exam room, on a stretcher. ll1 07:15 Baldev Bull DO is Attending Physician. ms3 07:17 Triage completed. ll1 07:21 Patient has correct armband on for positive identification. bp 07:29 Primary Nurse role handed off by Randolph Lenz, RN ap3 07:29 Dea Brannon, RN is Primary Nurse. ap3 07:30 Randolph Lenz, RN is Primary Nurse. bp 07:43 CT Abd/Pelvis - IV Contrast Only Sent. bp 07:43 Initial lab(s) drawn, by me, sent to lab. Inserted saline lock: 22 gauge in right ap3 antecubital area, using aseptic technique. Blood collected. Flushed with 10 mL NS. 07:52 CT Abd/Pelvis - IV Contrast Only In Process Unspecified. EDMS 08:01 Fox Florez is Hospitalizing Provider. ms3 10:09 No provider procedures requiring assistance completed. Patient admitted, IV remains in bp place. 10:16 Provided Education on: need for admission. ap3 Administered Medications: 07:54 Drug: morphine IVP or IV 4 mg IVP once over 4 mins {Note: pain 8/10 on pain scale.} ap3 Route: IVP; Infused Over: 4 mins; Site: right antecubital; 08:47 Follow up: Response: No adverse reaction; Pain is decreased; RASS: Alert and Calm (0) ap3 08:16 Drug: Piperacillin-Tazobactam IVPB 3.375 grams IVPB once over 60 mins; (mix in NS 100 ap3 mL) Route: IVPB; Infused Over: 60 mins; Site: right antecubital; 08:48 Follow up: IV Status: Completed infusion; IV Intake: 100ml ap3 Medication: 07:21 VIS not applicable for this client. bp Intake: 08:48 IV: 100ml; Total: 100ml. ap3 Outcome: 08:01 Decision to Hospitalize by Provider. ms3 10:09 Admitted to OR accompanied by tech, via wheelchair, bp 10:09 Condition: stable 10:09 Instructed on the need for admit, 10:16 Patient left the ED. ap3 Signatures: Dispatcher [employer] EDMS Randolph Lenz RN RN bp Dea Brannon RN RN ap3 Jordy Araya RN RN ll1 Baldev Bull DO DO ms3 Bhumika Parsons ra3 Corrections: (The following items were deleted from the chart) 07:18 07:17 PSHx: None; ll1 ll1
[2024-08-03] MEDS ORDERED: NA CHLORIDE 0.9% 100 ML ONE (08:06)
[2024-08-03] MEDS ORDERED: PIPERACIL/TAZO 3.375 GM VIAL IV ONE (08:07)
[2024-08-03 08:09] LABS: Albumin 3.5 g/dL (3.4-5.0); Albumin/Globulin Ratio 0.9 (1.1-1.8); Anion Gap 8.7 mEq/L (5.0-15.0); Bilirubin Total 0.4 mg/dL (0.2-1.0); Globulin 3.7 g/dL (2.3-3.5); Potassium 3.7 mEq/L (3.5-5.1); Protein, Total 7.2 g/dL (6.4-8.2)
--- NOTE | 2024-08-03 09:33 | P.HP ---
Certification for Inpatient Patient admitted to: Observation With expected LOS: <2 Midnights Practitioner: I am a practitioner with admitting privileges, knowledge of patient current condition, hospital course, and medical plan of care. Services: Services provided to patient in accordance with Admission requirements found in Title 42 Section 412.3 of the Code of Federal Regulations Patient History Date of Service: 08/03/24 Reason for admission: Acute Appendicitis History of Present Illness: Luis Leija is a 38 year old male with no significant pmhx who presents to the ED with right flank pain this morning. He denies fever, chills, N/V, and diarrhea. He reports the last time he ate was at [address] abd/pelvis reports "Acute nonperforated appendicitis". Laboratory evaluation significant for WBC 14.8, serum glucose 129. He reports not seeing a doctor since he is moved here 9 years ago. Initial vitals BP 149 / 100; Pulse 86; Resp 17; Temp 97.6; Pulse Ox 96% on R/A Luis will be admitted to hospitalist service for further treatment acute appendicitis, Dr. Gray consulted Allergies No Known Allergies Allergy (Unverified 08/03/24 09:28) - Past Medical/Surgical History Past Medical History: Patient denies medical history -: lipoma - Family History Family History: Reviewed- Non-Contributory - Social History Smoking Status: Never smoker Alcohol use: No CD- Drugs: No Review of Systems Gastrointestinal: Abdominal Pain (Right flank) Physical Examination - Physical Exam General: Alert, In no apparent distress, Oriented x3 HEENT: Atraumatic, Normocephalic, PERRLA Neck: Supple, 2+ carotid pulse no bruit, JVD not distended Respiratory: Clear to auscultation bilaterally, Normal air movement Cardiovascular: Normal pulses, Regular rate/rhythm, Normal S1 S2 Capillary refill: <2 Seconds Gastrointestinal: Hypoactive, Soft and benign, Tenderness (right flank) Musculoskeletal: No clubbing Integumentary: No rashes Neurological: Normal speech, Normal tone - Studies Laboratory Data (last 24 hrs) 08/03/24 08/03/24 07:37 07:37 WBC 14.80 H Hgb 14.7 Hct 43.9 Plt Count 248 Sodium 138 Potassium 3.7 BUN 16 Creatinine 1.00 Glucose 129 H Total Bilirubin 0.4 AST 20 ALT 49 Alkaline Phosphatase 75 Assessment and Plan - Plan Assessment and Plam Acute uncomplicated appendicitis Leukocytosis -CT abd/pelvis reports "Acute nonperforated appendicitis" -WBC 14.8 -N.p.o. for surgery today, FLD post surgery -Dr. Gray consulted and plans on surgery today -Zosyn given in the ED, will continue on the floor -Gentle IV fluids -Pain control Hypertensive -Intial ED BP144/100 -continue to monitor for antihypertensive medications DVT PPx SCD Full code LOS 24-hour OBS Discharge Plan: Home Plan to discharge in: 24 Hours - Advance Directives Does patient have a Living Will: No Does patient have a Durable POA for Healthcare: No
[2024-08-03] MEDS: NA CHLORIDE 0.9% 1,000 ML IV SCH (10:00)
[2024-08-03] MEDS ORDERED: KETOROLAC 30 MG/ML INJ ONE (10:15)
[2024-08-03] MEDS ORDERED: ONDANSETRON 4 MG/2 ML VIAL ONE (10:15)
[2024-08-03] MEDS ORDERED: LIDOCAINE 1% MPF 5 ML VIAL ONE (10:15)
[2024-08-03] MEDS ORDERED: propofoL 200 MG/20 ML VIAL IV ONE (10:16)
[2024-08-03] MEDS ORDERED: MIDAZOLAM HCL 2 MG/2 ML INJ ONE (10:16)
[2024-08-03] MEDS ORDERED: ROCURONIUM 50 MG/5 ML VIAL IV ONE (10:16)
[2024-08-03] MEDS ORDERED: FENTANYL CITR 100 MCG/2 ML ONE (10:16)
[2024-08-03] MEDS: Ringers Lactate 1,000 ML IV ONE (10:42)
[2024-08-03] MEDS ORDERED: ESMOLOL HCL 10 ML IV ONE (11:28)
--- NOTE | 2024-08-03 12:14 | P.BOP ---
Preoperative diagnosis: acute appendicitis, umbilical hernia Postoperative diagnosis: same Primary procedure: 1. Laparoscopic appendectomy Secondary procedure: 2. Open repair of umbilical hernia Estimated blood loss: <10cc Specimen: appendix Findings: as above Anesthesia: General Complications: None Transferred to: Recovery Room Condition: Good
--- NOTE | 2024-08-03 14:04 | CON ---
Date of Consultation: 08/03/2024 Diagnosis: Acute appendicitis. History Of Present Illness: This is the case of a 38-year-old patient with history of hypertension, comes to us with right lower quadrant pain, associated with nausea, that started late last night. It did not improve this morning, so he now decided to come to the ER, diagnosed with acute appendicitis and a surgical evaluation was done. Past surgeries include lipomas removed from his body. Medical history includes hypertension, though he noticed it is kind of high today, his blood pressure. Allergies: NONE. Social History: He does not smoke. He does not drink alcohol. Family History: Noncontributory. Review of Systems: Nausea, abdominal pain. No dysuria, hematuria, hematochezia, or melena. No recent travel out of the country. No family member sick at home. Physical Examination: Vital Signs: Reviewed. General: The patient is awake, alert. HEENT: Pupils are equal and reactive. Anicteric. Neck: Supple. Chest: Clear. Heart: S1, S2. Abdomen: Right lower quadrant tenderness with guarding. Psoas sign is positive. Rectal: Deferred. Extremities: Good capillary refill. Laboratory Data: Blood work shows WBC count of 14, with hemoglobin of 14. Potassium 3.7. CAT scan of the abdomen and pelvis interpreted by Dr. Nina as acute appendicitis. Also small umbilical hernia. Assessment: This is a 38-year-old patient with acute appendicitis, retrocecal, also umbilical hernia . The benefits, alternatives, risks of laparoscopic possible open appendectomy fully explained, whic h include, but not limited to infection, bleeding, damage to adjacent structures, anesthesia complica tion, recurrence, KS, even . He also understands this may not relieve the symptoms, he might ne ed more than one surgical intervention. If we can fix the hernia at this moment, we will do, there i s no guarantee of that, the pain is on the side, and the pain is on the location. He was immediately booked in OR. TAYLER/LEONIE Voice ID: [id number] Report ID: [id number]
[2024-08-03] MEDS: NA CHLORIDE 0.9% 1,000 ML ONE (14:37)
[2024-08-03 15:22] VITALS: BMI 29.7
[2024-08-03 15:35] VITALS: O2SAT 96
[2024-08-03] MEDS: MORPHINE 2 MG/ML SYR IV PRN (15:44)
[2024-08-03] MEDS: PIPER TAZO 3.375 GM in NA CHLORIDE 0.9% 100 ML IV SCH (17:06)
[2024-08-04 06:30] LABS: Absolute Eosinophils 0.1 K/uL (0-0.5); Absolute Lymphocytes (CBC) 2.3 K/uL (0.7-4.9); Absolute Monocytes 0.9 K/uL (0.1-1.3); Absolute Neutrophil 6.2 K/uL (1.8-8.0); Basophils % 0.4 % (0-1.3); Eosinophils % 0.8 % (0-4.4); Hemoglobin 14.1 g/dL (13.6-17.9); Lymphocytes % 24.5 % (15.3-44.8); MCH 28.5 pg (27.0-35.0); MCHC 32.8 g/dL (32.0-36.0); MCV 86.8 fL (80-100); MPV 9.8 fL (7.6-11.3); Neutrophils % 65.3 % (41.7-73.7); Platelets 251 thou/uL (152-406); RBC Red Blood Cell Count 4.96 M/uL (4.33-5.43); Red Cell Distribution Width 13.6 % (12.1-15.2)
[2024-08-04 06:54] LABS: Anion Gap 6.8 mEq/L (5.0-15.0); Magnesium 1.9 mg/dL (1.6-2.4); Phosphorus 3.3 mg/dL (2.5-4.9); Potassium 3.8 mEq/L (3.5-5.1)
[2024-08-04] MEDS: PIPERACIL/TAZO 3.375 GM VIAL IV ONE (09:30)
[2024-08-04 09:54] VITALS: BP 117/60; TEMP 97.8
--- NOTE | 2024-08-04 16:54 | P.DS ---
Admission Date: 08/03/24 Discharge Date: 08/04/24 Reason for Admission: Acute Appendicitis, umbilical hernia Consultations: Dr. Gray Brief History of Present Illness: Luis Leija is a 38 year old male with no significant pmhx who presents to the ED with right flank pain this morning. He denies fever, chills, N/V, and diarrhea. He reports the last time he ate was at [address] abd/pelvis reports "Acute nonperforated appendicitis". Laboratory evaluation significant for WBC 14.8, serum glucose 129. He reports not seeing a doctor since he is moved here 9 years ago. Initial vitals BP 149 / 100; Pulse 86; Resp 17; Temp 97.6; Pulse Ox 96% on R/A Luis will be admitted to hospitalist service for further treatment acute appendicitis, Dr. Gray consulted Hospital Course: is a 38-year-old male who is status post appendectomy and umbilical hernia repair yesterday. On morning rounds he was deemed stable for discharge Dr. Gray has cleared him to follow-up in his office in 2 weeks. Patient voices understanding of treatment plan and follow-up. <Eve Morales - Last Filed: 08/04/24 16:56> Admission Date: 08/03/24 Discharge Date: 08/07/24 Hospital Course: Discharge diagnosis Acute appendicitis Leukocytosis Hypertension <karoline cheng - Last Filed: 08/07/24 17:02> Disposition: ROUTINE DISCHARGE Discharge Condition: GOOD Vital Signs/Physical Exam: Temp Pulse Resp BP Pulse Ox 97.8 F 80 16 117/60 93 08/04/24 08:00 08/04/24 08:00 08/04/24 11:18 08/04/24 08:00 08/04/24 08:00 General: Alert, In no apparent distress HEENT: Atraumatic, Normocephalic Neck: Supple Respiratory: Clear to auscultation bilaterally, Normal air movement Cardiovascular: Normal pulses Capillary refill: <2 Seconds Gastrointestinal: Other (+ urination, passing gas), Tenderness (mild) Musculoskeletal: No clubbing, No swelling Integumentary: No rashes Neurological: Normal speech, Normal tone, Normal affect Lymphatics: No axilla or inguinal lymphadenopathy External genitalia: Deferred Rectal: Deferred Laboratory Data at Discharge: WBC 9.50 thou/uL (4.3-10.9) 08/04/24 05:51 Hgb 14.1 g/dL (13.6-17.9) 08/04/24 05:51 Hct 43.0 % (39.6-49.0) 08/04/24 05:51 Plt Count 251 thou/uL (152-406) 08/04/24 05:51 Sodium 138 mEq/L (136-145) 08/04/24 05:51 Potassium 3.8 mEq/L (3.5-5.1) 08/04/24 05:51 BUN 11 mg/dL (7-18) 08/04/24 05:51 Creatinine 1.26 mg/dL (0.70-1.30) 08/04/24 05:51 Glucose 131 mg/dL (74-106) H 08/04/24 05:51 Phosphorus 3.3 mg/dL (2.5-4.9) 08/04/24 05:51 Magnesium 1.9 mg/dL (1.6-2.4) 08/04/24 05:51 Total Bilirubin 0.4 mg/dL (0.2-1.0) 08/03/24 07:37 AST 20 U/L (15-37) 08/03/24 07:37 ALT 49 U/L (16-61) 08/03/24 07:37 Alkaline Phosphatase 75 U/L (45-117) 08/03/24 07:37 Triglycerides 175 mg/dL (<150) H 08/04/24 05:51 Cholesterol 240 mg/dL (<200) H 08/04/24 05:51 HDL Cholesterol 39 mg/dL (40-60) L 08/04/24 05:51 Cholesterol/HDL Ratio 6.15 08/04/24 05:51 <Morales,Eve Axel - Last Filed: 08/04/24 16:56> Vital Signs/Physical Exam: Temp Pulse Resp BP Pulse Ox 97.8 F 80 16 117/60 93 08/04/24 08:00 08/04/24 08:00 08/04/24 11:18 08/04/24 08:00 08/04/24 08:00 Laboratory Data at Discharge: WBC 9.50 thou/uL (4.3-10.9) 08/04/24 05:51 Hgb 14.1 g/dL (13.6-17.9) 08/04/24 05:51 Hct 43.0 % (39.6-49.0) 08/04/24 05:51 Plt Count 251 thou/uL (152-406) 08/04/24 05:51 Sodium 138 mEq/L (136-145) 08/04/24 05:51 Potassium 3.8 mEq/L (3.5-5.1) 08/04/24 05:51 BUN 11 mg/dL (7-18) 08/04/24 05:51 Creatinine 1.26 mg/dL (0.70-1.30) 08/04/24 05:51 Glucose 131 mg/dL (74-106) H 08/04/24 05:51 Phosphorus 3.3 mg/dL (2.5-4.9) 08/04/24 05:51 Magnesium 1.9 mg/dL (1.6-2.4) 08/04/24 05:51 Total Bilirubin 0.4 mg/dL (0.2-1.0) 08/03/24 07:37 AST 20 U/L (15-37) 08/03/24 07:37 ALT 49 U/L (16-61) 08/03/24 07:37 Alkaline Phosphatase 75 U/L (45-117) 08/03/24 07:37 Triglycerides 175 mg/dL (<150) H 08/04/24 05:51 Cholesterol 240 mg/dL (<200) H 08/04/24 05:51 HDL Cholesterol 39 mg/dL (40-60) L 08/04/24 05:51 Cholesterol/HDL Ratio 6.15 08/04/24 05:51 <karoline cheng - Last Filed: 08/07/24 17:02> Diet: AHA Activity: No lifting more than 10 lbs <Eve Morales - Last Filed: 08/04/24 16:56> <karoline cheng - Last Filed: 08/07/24 17:02> Home Medications: Amox/Clavulanate [Augmentin 875-125 Tab] 1 each PO BID #14 tab 08/04/24 traMADol HCL [Ultram*] 50 mg PO Q6H PRN #20 tab 08/04/24 New Medications: Amox/Clavulanate [Augmentin 875-125 Tab] 1 each PO BID #14 tab traMADol HCL [Ultram*] 50 mg PO Q6H PRN #20 tab PRN Reason: Pain Physician Discharge Instructions: Keep surgical area dry for 24h then may remove outer dressing and shower. Then, cover surgical tracy with bandaid daily Followup: Glen Gray MD [ACTIVE - CAN ADMIT] - 1 Week NONE,NONE [Primary Care Provider] -
--- NOTE | 2024-08-18 16:17 | OP ---
Date of Procedure: 08/03/2024 Surgeon: Glen Gray MD Preoperative Diagnoses: Acute appendicitis, umbilical hernia. Postoperative Diagnoses: Acute appendicitis, umbilical hernia. Procedures: 1.Laparoscopic appendectomy. 2.Open repair of umbilical hernia. Estimated Blood Loss: Less than 10 cc. Specimen: Appendix. Findings: As above. Anesthesia: General plus local. Indications: This is a case of a male, who came to us with above diagnoses. Explained the benefits, alternatives, and risks of laparoscopic, possible open appendectomy, which include, but not limited to, infection, bleeding, damage to adjacent structures, anesthesia complication, recurrence, NH, and even . He also understands this may not relieve any symptoms. He might need more than one surg ical intervention. He understood and signed a consent. Description Of Procedure: Patient was brought to the operating room, placed in supine position. Ane sthesia was induced without complication. Abdominal area was prepped and draped in a sterile fashion . Local anesthesia was applied followed by sharp incision of the skin in the periumbilical region. Immediately, we noticed the patient to have umbilical hernia. Umbilical sac was then removed from th e umbilical skin, opened the hernia sac, and reduced the content, which is maybe omentum after we too k some adhesions to the hernia sac. Once we have that, we cleaned the fascia edges, placed Vicryl #1 inside of the fascia. Cori trocar was carefully introduced. Pneumoperitoneum was obtained. Afte r that, we directed our attention to the right lower quadrant. At that moment, I proceeded then to p lace a 5 mm trocar in the suprapubic area and another one in left lower quadrant. This allowed me to visualize the area of the appendix. We noticed the appendix to be inflamed. So, we created a windo w in the base of the appendix, transected that with the Endo-SCOOBY 45 mm nonvascular and the mesoappend ix was ligated with vascular one. No bowel leak. No bleeding. Appendix removed from abdominal cavi ty using the EndoCatch through the umbilical incision. The area was inspected once again. The rest of the cecum looks normal, at least no extraluminal masses and pelvis looked with no masses. No blee ding. At that moment, I proceeded after irrigation to remove the trocars under direct vision. Defla amy the pneumoperitoneum. Closed the fascia and the umbilical hernia with #1 Vicryl, irrigated subcu taneous tissue, closed that with 3-0 chromic and then the skin approximated. Sponge counts and instr ument counts were correct. Patient tolerated the procedure well. Patient sent to recovery room in s table condition. TAYLER/LEONIE Voice ID: [id number] Report ID: [id number]
== END 2024-08-04 12:24 | disposition home or self-care (01) ==
LOC: ER 07:08 → ERHOLD 09:20 → 2ND 14:35
PROVIDERS: ADMIT Internal Medicine; ATTEND Internal Medicine
PROC: 0DTJ4ZZ Resection of Appendix, Percutaneous Endoscopic Approach (ICD-10-PCS; principal; 2024-08-03 11:45)
DX: K35.80 Unspecified acute appendicitis (principal); D72.829 Elevated white blood cell count, unspecified; I10 Essential (primary) hypertension
CPT/HCPCS: 44970; 96365; 85025 ×2; 81001; 80048; 36415; 83735; 84100; 80061; 88304; 80053; 74177; 94010; 96375; 99285; Q9967; J2704; J2003; J2543 ×5; J2250; J3010; J2270 ×5; J2405; G0378 ×4; J7120; J7030 ×3